=== PATIENT | female | born 1955 | race Caucasian/White ===

== ENCOUNTER 2020-04-15 18:45 | Inpatient (IN) ==
[2020-04-16] MEDS ORDERED: Naloxone 0.4 MG/ML INJ IVP PRN (00:32)
[2020-04-16] MEDS ORDERED: Acetaminophen 325 MG TABLET PO PRN (00:34)
[2020-04-16] MEDS ORDERED: Perflutren Lipid Microsphere 1.3 ML in 0.9 % Sodium Chloride 8.7 ML IVP PRN (00:53)
[2020-04-16 01:14] LABS: Basophils # 0.1 K/mcL (0.0-0.2); Basophils % 0.5 %; Eosinophils # 0.3 K/mcL (0.0-0.6); Eosinophils % 2.7 %; Hematocrit 40.2 % (35.3-44.9); Hemoglobin 11.7 g/dL (11.5-15.4); Immature Granulocytes % 0.3 % (0-4); Lymphocytes # 1.4 K/mcL (0.6-4.6); Lymphocytes % 13.7 %; Mean Corpuscular HGB Conc 29.1 g/dL (31.6-35.5); Mean Corpuscular Hemoglobin 27.2 pg (28.0-33.3); Mean Corpuscular Volume 93.5 fL (83.0-100.0); Mean Platelet Volume 10.4 fL (9.4-12.4); Monocytes # 0.8 K/mcL (0.0-1.3); Monocytes % 8.3 %; Neutrophils # 7.4 K/mcL (1.6-8.9); Platelet Count 182 K/mcL (140-400); Red Cell Distribution Width 16.1 % (11.5-14.5); Segmented Neutrophils % 74.5 %; White Blood Count 9.9 K/mcL (4.3-11.1)
[2020-04-16 01:20] LABS: INR 1.2; Prothrombin Time 14.3 Seconds (9.4-12.1)
[2020-04-16 01:22] LABS: Activated Partial Thrombo Time 25.7 Seconds (26.0-36.0)
[2020-04-16 01:46] LABS: Alanine Aminotransferase 10 Units/L (7-52); Albumin 2.8 g/dL (3.5-5.7); Albumin/Globulin Ratio 0.8 (1.1-2.2); Alkaline Phosphatase 62 Units/L (34-104); Aspartate Amino Transferase 23 Units/L (13-39); BUN/Creatinine Ratio 25 (6-26); Bilirubin,Total 0.8 mg/dL (0.3-1.0); Blood Urea Nitrogen 15 mg/dL (8-23); Calcium 8.7 mg/dL (8.6-10.3); Carbon Dioxide 42 mEq/L (23-29); Chloride 96 mEq/L (98-107); Chol/HDL Ratio 2.3 (0-4.9); Cholesterol 112 mg/dL (< 200); Globulin 3.6 g/dL (2.4-3.5); Glucose 103 mg/dL (70-105); HDL Cholesterol 48 mg/dL (40-59); LDL Cholesterol,Calculated 48 mg/dL (< 100); Magnesium 1.7 mg/dL (1.6-2.6); Osmolality,Calculated 295 (280-300); Potassium 3.6 mEq/L (3.5-5.1); Sodium 142 mEq/L (136-145); Total Protein 6.4 g/dL (6.4-8.9); Triglycerides 80 mg/dL (< 150); Troponin I 0.16 ng/mL (< 0.04); eGFR For African Americans > 60 (> 60); eGFR For Non-African Americans > 60 (> 60)
[2020-04-16 03:14] LABS: Bacteria,Urine Few per hpf (None-Few); Bilirubin,Urine Negative (Negative); Blood,Urine Large (Negative); Clarity,Urine Turbid (Clear); Color,Urine Yellow (Yellow); Glucose,Urine (UA) Normal (Normal); Ketones,Urine Negative (Negative); Leukocyte Esterase,Urine Large (Negative); Mucus,Urine Few per lpf (None-Few); Nitrite,Urine Negative (Negative); Protein,Urine 70 mg/dL (Neg-Trace); RBC,Urine TNTC per hpf (0-3); Specific Gravity,Urine 1.026 (1.010-1.025); Squamous Epithelial Cell,Urine Few per hpf (None-Few); WBC,Urine TNTC per hpf (0-3)
[2020-04-16] MEDS: Aspirin Enteric Coated 81 MG Tablet PO SCH (08:57)
[2020-04-16] MEDS ORDERED: Furosemide 40 MG/4 ML VIAL IVP SCH (09:00)
[2020-04-16] MEDS: Furosemide 40 MG/4 ML VIAL IVP SCH ×2 (14:59→21:48)
[2020-04-16] MEDS: *HR* Heparin 5,000 UNIT/ML VIAL SQ SCH (18:20)
[2020-04-17 05:07] LABS: Hematocrit 38.7 % (35.3-44.9); Hemoglobin 11.2 g/dL (11.5-15.4); Mean Corpuscular HGB Conc 28.9 g/dL (31.6-35.5); Mean Corpuscular Hemoglobin 27.1 pg (28.0-33.3); Mean Corpuscular Volume 93.5 fL (83.0-100.0); Mean Platelet Volume 10.5 fL (9.4-12.4); Platelet Count 193 K/mcL (140-400); Red Blood Count 4.14 M/mcL (3.82-4.97); White Blood Count 8.9 K/mcL (4.3-11.1)
[2020-04-17 05:30] LABS: BUN/Creatinine Ratio 25 (6-26); Blood Urea Nitrogen 16 mg/dL (8-23); Calcium 8.4 mg/dL (8.6-10.3); Carbon Dioxide > 45 mEq/L (23-29); Chloride 92 mEq/L (98-107); Glucose 95 mg/dL (70-105); Osmolality,Calculated 295 (280-300); Potassium 3.5 mEq/L (3.5-5.1); Sodium 142 mEq/L (136-145); eGFR For African Americans > 60 (> 60); eGFR For Non-African Americans > 60 (> 60)
[2020-04-17] MEDS: *HR* Heparin 5,000 UNIT/ML VIAL SQ SCH ×2 (05:40→17:04)
[2020-04-17] MEDS: Aspirin Enteric Coated 81 MG Tablet PO SCH (10:35)
[2020-04-17] MEDS: Furosemide 40 MG/4 ML VIAL IVP SCH ×3 (10:35→21:25)
[2020-04-17 15:33] LABS: ABG Base Excess 19 mEq/L (-2 to 3); ABG HCO3 47 mEq/L (21-27); ABG Oxygen Saturation 91 % (95-98); ABG PCO2 74 mmHg (35-45); ABG PH 7.42 pH Units (7.32-7.45); ABG PO2 63 mmHg (85-104); ABG TCO2 50 mEq/L (20-26)
[2020-04-17] MEDS: cefTRIAXone 1,000 MG in Water for inj. (sterile) 10 ML IVP SCH (15:44)
[2020-04-18 04:26] LABS: Mean Platelet Volume 10.7 fL (9.4-12.4)
[2020-04-18 04:28] LABS: Hematocrit 40.7 % (35.3-44.9); Hemoglobin 11.9 g/dL (11.5-15.4); Mean Corpuscular HGB Conc 29.2 g/dL (31.6-35.5); Mean Corpuscular Hemoglobin 26.9 pg (28.0-33.3); Mean Corpuscular Volume 92.1 fL (83.0-100.0); Platelet Count 207 K/mcL (140-400); Red Blood Count 4.42 M/mcL (3.82-4.97); Red Cell Distribution Width 15.8 % (11.5-14.5); White Blood Count 9.2 K/mcL (4.3-11.1)
[2020-04-18 04:51] LABS: BUN/Creatinine Ratio 25 (6-26); Blood Urea Nitrogen 18 mg/dL (8-23); Calcium 8.6 mg/dL (8.6-10.3); Carbon Dioxide > 45 mEq/L (23-29); Chloride 90 mEq/L (98-107); Glucose 98 mg/dL (70-105); Osmolality,Calculated 292 (280-300); Potassium 3.3 mEq/L (3.5-5.1); Sodium 140 mEq/L (136-145); eGFR For African Americans > 60 (> 60); eGFR For Non-African Americans > 60 (> 60)
[2020-04-18] MEDS: *HR* Heparin 5,000 UNIT/ML VIAL SQ SCH ×2 (05:50→17:22)
[2020-04-18] MEDS: Aspirin Enteric Coated 81 MG Tablet PO SCH (09:21)
[2020-04-18] MEDS: atenoloL 50 MG TABLET PO SCH (09:21)
[2020-04-18] MEDS: Furosemide 40 MG/4 ML VIAL IVP SCH (09:22)
[2020-04-18] MEDS: cefTRIAXone 1,000 MG in Water for inj. (sterile) 10 ML IVP SCH (09:30)
[2020-04-18 11:55] LABS: ABG Base Excess 18 mEq/L (-2 to 3); ABG HCO3 45 mEq/L (21-27); ABG Oxygen Saturation 94 % (95-98); ABG PCO2 64 mmHg (35-45); ABG PH 7.45 pH Units (7.32-7.45); ABG PO2 71 mmHg (85-104); ABG TCO2 47 mEq/L (20-26)
[2020-04-18] MEDS: acetaZOLAMIDE 250 MG TABLET PO SCH (12:24)
[2020-04-19 04:58] LABS: Hematocrit 39.9 % (35.3-44.9); Hemoglobin 11.7 g/dL (11.5-15.4); Mean Corpuscular HGB Conc 29.3 g/dL (31.6-35.5); Mean Corpuscular Hemoglobin 26.9 pg (28.0-33.3); Mean Corpuscular Volume 91.7 fL (83.0-100.0); Mean Platelet Volume 10.2 fL (9.4-12.4); Platelet Count 226 K/mcL (140-400); Red Blood Count 4.35 M/mcL (3.82-4.97); Red Cell Distribution Width 15.9 % (11.5-14.5); White Blood Count 8.9 K/mcL (4.3-11.1)
[2020-04-19 05:15] LABS: BUN/Creatinine Ratio 24 (6-26); Blood Urea Nitrogen 18 mg/dL (8-23); Carbon Dioxide 44 mEq/L (23-29); Chloride 93 mEq/L (98-107); Glucose 92 mg/dL (70-105); Osmolality,Calculated 290 (280-300); Potassium 3.4 mEq/L (3.5-5.1); Sodium 139 mEq/L (136-145); eGFR For African Americans > 60 (> 60); eGFR For Non-African Americans > 60 (> 60)
[2020-04-19] MEDS: *HR* Heparin 5,000 UNIT/ML VIAL SQ SCH ×2 (06:12→18:03)
[2020-04-19] MEDS: atenoloL 50 MG TABLET PO SCH (09:40)
[2020-04-19] MEDS: Aspirin Enteric Coated 81 MG Tablet PO SCH (09:41)
[2020-04-20 03:55] LABS: Red Cell Distribution Width 15.9 % (11.5-14.5)
[2020-04-20 03:56] LABS: Hemoglobin 12.4 g/dL (11.5-15.4); Mean Corpuscular HGB Conc 29.5 g/dL (31.6-35.5); Mean Corpuscular Hemoglobin 27.3 pg (28.0-33.3); Mean Corpuscular Volume 92.3 fL (83.0-100.0); Mean Platelet Volume 10.9 fL (9.4-12.4); Platelet Count 251 K/mcL (140-400); Red Blood Count 4.55 M/mcL (3.82-4.97); White Blood Count 10.1 K/mcL (4.3-11.1)
[2020-04-20 04:13] LABS: BUN/Creatinine Ratio 29 (6-26); Blood Urea Nitrogen 20 mg/dL (8-23); Calcium 9.2 mg/dL (8.6-10.3); Carbon Dioxide 37 mEq/L (23-29); Chloride 95 mEq/L (98-107); Glucose 96 mg/dL (70-105); Osmolality,Calculated 286 (280-300); Potassium 3.8 mEq/L (3.5-5.1); Sodium 137 mEq/L (136-145); eGFR For African Americans > 60 (> 60); eGFR For Non-African Americans > 60 (> 60)
[2020-04-20] MEDS: *HR* Heparin 5,000 UNIT/ML VIAL SQ SCH ×2 (05:07→17:33)
[2020-04-20] MEDS: Aspirin Enteric Coated 81 MG Tablet PO SCH (08:43)
[2020-04-20] MEDS: acetaZOLAMIDE 250 MG TABLET PO SCH (08:43)
[2020-04-20] MEDS: atenoloL 50 MG TABLET PO SCH (08:43)
[2020-04-21 03:26] LABS: Hematocrit 41.6 % (35.3-44.9); Hemoglobin 12.2 g/dL (11.5-15.4); Mean Corpuscular HGB Conc 29.3 g/dL (31.6-35.5); Mean Corpuscular Hemoglobin 27.1 pg (28.0-33.3); Mean Corpuscular Volume 92.2 fL (83.0-100.0); Mean Platelet Volume 10.5 fL (9.4-12.4); Platelet Count 222 K/mcL (140-400); Red Blood Count 4.51 M/mcL (3.82-4.97); White Blood Count 10.1 K/mcL (4.3-11.1)
[2020-04-21 03:48] LABS: BUN/Creatinine Ratio 30 (6-26); Blood Urea Nitrogen 21 mg/dL (8-23); Calcium 8.9 mg/dL (8.6-10.3); Carbon Dioxide 34 mEq/L (23-29); Chloride 99 mEq/L (98-107); Glucose 90 mg/dL (70-105); Osmolality,Calculated 289 (280-300); Potassium 4.5 mEq/L (3.5-5.1); Sodium 138 mEq/L (136-145); eGFR For African Americans > 60 (> 60); eGFR For Non-African Americans > 60 (> 60)
[2020-04-21] MEDS: *HR* Heparin 5,000 UNIT/ML VIAL SQ SCH ×2 (05:06→17:59)
[2020-04-21] MEDS: Aspirin Enteric Coated 81 MG Tablet PO SCH (08:17)
[2020-04-21] MEDS: atenoloL 50 MG TABLET PO SCH (08:17)
[2020-04-22 01:13] LABS: Hematocrit 41.1 % (35.3-44.9); Hemoglobin 12.1 g/dL (11.5-15.4); Mean Corpuscular HGB Conc 29.4 g/dL (31.6-35.5); Mean Corpuscular Hemoglobin 26.9 pg (28.0-33.3); Mean Corpuscular Volume 91.5 fL (83.0-100.0); Platelet Count 262 K/mcL (140-400); Red Blood Count 4.49 M/mcL (3.82-4.97); Red Cell Distribution Width 16.1 % (11.5-14.5); White Blood Count 9.9 K/mcL (4.3-11.1)
[2020-04-22 01:34] LABS: BUN/Creatinine Ratio 31 (6-26); Blood Urea Nitrogen 22 mg/dL (8-23); Calcium 8.9 mg/dL (8.6-10.3); Carbon Dioxide 34 mEq/L (23-29); Chloride 102 mEq/L (98-107); Glucose 92 mg/dL (70-105); Osmolality,Calculated 293 (280-300); Potassium 4.2 mEq/L (3.5-5.1); Sodium 140 mEq/L (136-145); eGFR For African Americans > 60 (> 60); eGFR For Non-African Americans > 60 (> 60)
[2020-04-22] MEDS: *HR* Heparin 5,000 UNIT/ML VIAL SQ SCH ×2 (05:06→17:09)
[2020-04-22] MEDS: Aspirin Enteric Coated 81 MG Tablet PO SCH (08:55)
[2020-04-22] MEDS: atenoloL 50 MG TABLET PO SCH (08:55)
[2020-04-22] MEDS: acetaZOLAMIDE 250 MG TABLET PO SCH (08:55)
[2020-04-23 03:17] LABS: Mean Platelet Volume 10.5 fL (9.4-12.4)
[2020-04-23 03:18] LABS: Hematocrit 43.1 % (35.3-44.9); Hemoglobin 12.4 g/dL (11.5-15.4); Mean Corpuscular HGB Conc 28.8 g/dL (31.6-35.5); Mean Corpuscular Hemoglobin 26.4 pg (28.0-33.3); Mean Corpuscular Volume 91.9 fL (83.0-100.0); Platelet Count 276 K/mcL (140-400); Red Blood Count 4.69 M/mcL (3.82-4.97); Red Cell Distribution Width 16.4 % (11.5-14.5); White Blood Count 10.6 K/mcL (4.3-11.1)
[2020-04-23 03:36] LABS: BUN/Creatinine Ratio 27 (6-26); Blood Urea Nitrogen 20 mg/dL (8-23); Calcium 8.8 mg/dL (8.6-10.3); Carbon Dioxide 35 mEq/L (23-29); Chloride 103 mEq/L (98-107); Glucose 97 mg/dL (70-105); Osmolality,Calculated 293 (280-300); Potassium 4.3 mEq/L (3.5-5.1); Sodium 140 mEq/L (136-145); eGFR For African Americans > 60 (> 60); eGFR For Non-African Americans > 60 (> 60)
[2020-04-23] MEDS: *HR* Heparin 5,000 UNIT/ML VIAL SQ SCH ×2 (05:48→16:55)
[2020-04-23] MEDS: Aspirin Enteric Coated 81 MG Tablet PO SCH (08:36)
[2020-04-23] MEDS: atenoloL 50 MG TABLET PO SCH (08:36)
[2020-04-24 03:04] LABS: Hematocrit 40.7 % (35.3-44.9); Hemoglobin 11.8 g/dL (11.5-15.4); Mean Corpuscular Volume 93.1 fL (83.0-100.0); Mean Platelet Volume 10.4 fL (9.4-12.4); Platelet Count 276 K/mcL (140-400); Red Blood Count 4.37 M/mcL (3.82-4.97); Red Cell Distribution Width 16.2 % (11.5-14.5); White Blood Count 10.3 K/mcL (4.3-11.1)
[2020-04-24 03:27] LABS: BUN/Creatinine Ratio 26 (6-26); Blood Urea Nitrogen 20 mg/dL (8-23); Calcium 8.9 mg/dL (8.6-10.3); Carbon Dioxide 32 mEq/L (23-29); Chloride 104 mEq/L (98-107); Glucose 91 mg/dL (70-105); Osmolality,Calculated 292 (280-300); Potassium 4.4 mEq/L (3.5-5.1); Sodium 140 mEq/L (136-145); eGFR For African Americans > 60 (> 60); eGFR For Non-African Americans > 60 (> 60)
[2020-04-24] MEDS: *HR* Heparin 5,000 UNIT/ML VIAL SQ SCH ×2 (06:06→17:34)
[2020-04-24] MEDS: Aspirin Enteric Coated 81 MG Tablet PO SCH (09:13)
[2020-04-24] MEDS: atenoloL 50 MG TABLET PO SCH (09:13)
[2020-04-24] MEDS: acetaZOLAMIDE 250 MG TABLET PO SCH (09:13)
[2020-04-25 02:32] LABS: Hemoglobin 11.6 g/dL (11.5-15.4); Mean Platelet Volume 10.2 fL (9.4-12.4)
[2020-04-25 02:34] LABS: Hematocrit 39.8 % (35.3-44.9); Mean Corpuscular HGB Conc 29.1 g/dL (31.6-35.5); Mean Corpuscular Hemoglobin 27.1 pg (28.0-33.3); Platelet Count 278 K/mcL (140-400); Red Blood Count 4.28 M/mcL (3.82-4.97); Red Cell Distribution Width 16.3 % (11.5-14.5); White Blood Count 10.1 K/mcL (4.3-11.1)
[2020-04-25 02:53] LABS: BUN/Creatinine Ratio 27 (6-26); Blood Urea Nitrogen 20 mg/dL (8-23); Calcium 9.1 mg/dL (8.6-10.3); Carbon Dioxide 31 mEq/L (23-29); Chloride 105 mEq/L (98-107); Glucose 93 mg/dL (70-105); Osmolality,Calculated 290 (280-300); Potassium 4.4 mEq/L (3.5-5.1); Sodium 139 mEq/L (136-145); eGFR For African Americans > 60 (> 60); eGFR For Non-African Americans > 60 (> 60)
[2020-04-25] MEDS: *HR* Heparin 5,000 UNIT/ML VIAL SQ SCH ×2 (05:28→17:03)
[2020-04-25 08:28] LABS: Magnesium 2.2 mg/dL (1.6-2.6); Phosphorous 3.5 mg/dL (2.7-4.5)
[2020-04-25] MEDS: Aspirin Enteric Coated 81 MG Tablet PO SCH (09:24)
[2020-04-25] MEDS: atenoloL 50 MG TABLET PO SCH (09:25)
[2020-04-25] MEDS ORDERED: Ipratropium/Albuterol Neb 3 ML IH PRN (17:36)
[2020-04-26 02:24] LABS: Hematocrit 40.3 % (35.3-44.9); Hemoglobin 11.7 g/dL (11.5-15.4); Mean Corpuscular Hemoglobin 26.7 pg (28.0-33.3); Mean Corpuscular Volume 91.8 fL (83.0-100.0); Mean Platelet Volume 10.2 fL (9.4-12.4); Platelet Count 271 K/mcL (140-400); Red Blood Count 4.39 M/mcL (3.82-4.97); Red Cell Distribution Width 16.1 % (11.5-14.5); White Blood Count 8.9 K/mcL (4.3-11.1)
[2020-04-26 02:45] LABS: BUN/Creatinine Ratio 28 (6-26); Blood Urea Nitrogen 19 mg/dL (8-23); Carbon Dioxide 33 mEq/L (23-29); Chloride 104 mEq/L (98-107); Glucose 110 mg/dL (70-105); Osmolality,Calculated 293 (280-300); Potassium 4.3 mEq/L (3.5-5.1); Sodium 140 mEq/L (136-145); eGFR For African Americans > 60 (> 60); eGFR For Non-African Americans > 60 (> 60)
[2020-04-26] MEDS: *HR* Heparin 5,000 UNIT/ML VIAL SQ SCH ×2 (06:07→16:44)
[2020-04-26] MEDS: atenoloL 50 MG TABLET PO SCH (09:37)
[2020-04-26] MEDS: acetaZOLAMIDE 250 MG TABLET PO SCH (09:37)
[2020-04-26] MEDS: Aspirin Enteric Coated 81 MG Tablet PO SCH (09:37)
[2020-04-27] MEDS: *HR* Heparin 5,000 UNIT/ML VIAL SQ SCH ×2 (05:48→18:06)
[2020-04-27 06:43] LABS: Hematocrit 44.5 % (35.3-44.9); Hemoglobin 12.9 g/dL (11.5-15.4); Mean Corpuscular Volume 93.3 fL (83.0-100.0); Mean Platelet Volume 10.2 fL (9.4-12.4); Platelet Count 267 K/mcL (140-400); Red Blood Count 4.77 M/mcL (3.82-4.97); Red Cell Distribution Width 16.3 % (11.5-14.5); White Blood Count 8.3 K/mcL (4.3-11.1)
[2020-04-27 07:04] LABS: BUN/Creatinine Ratio 25 (6-26); Blood Urea Nitrogen 19 mg/dL (8-23); Calcium 9.2 mg/dL (8.6-10.3); Carbon Dioxide 31 mEq/L (23-29); Chloride 105 mEq/L (98-107); Glucose 86 mg/dL (70-105); Osmolality,Calculated 292 (280-300); Potassium 4.3 mEq/L (3.5-5.1); Sodium 140 mEq/L (136-145); eGFR For African Americans > 60 (> 60); eGFR For Non-African Americans > 60 (> 60)
[2020-04-27] MEDS: atenoloL 50 MG TABLET PO SCH (09:25)
[2020-04-27] MEDS: Aspirin Enteric Coated 81 MG Tablet PO SCH (09:26)
[2020-04-28 01:26] LABS: Hematocrit 43.8 % (35.3-44.9); Hemoglobin 12.7 g/dL (11.5-15.4); Mean Corpuscular Hemoglobin 26.7 pg (28.0-33.3); Mean Platelet Volume 10.2 fL (9.4-12.4); Platelet Count 264 K/mcL (140-400); Red Blood Count 4.76 M/mcL (3.82-4.97); Red Cell Distribution Width 16.2 % (11.5-14.5); White Blood Count 11.7 K/mcL (4.3-11.1)
[2020-04-28 01:35] LABS: BUN/Creatinine Ratio 27 (6-26); Blood Urea Nitrogen 19 mg/dL (8-23); Calcium 9.1 mg/dL (8.6-10.3); Carbon Dioxide 28 mEq/L (23-29); Chloride 104 mEq/L (98-107); Glucose 93 mg/dL (70-105); Osmolality,Calculated 286 (280-300); Phosphorous 3.5 mg/dL (2.7-4.5); Potassium 4.3 mEq/L (3.5-5.1); Sodium 137 mEq/L (136-145); eGFR For African Americans > 60 (> 60); eGFR For Non-African Americans > 60 (> 60)
[2020-04-28] MEDS: *HR* Heparin 5,000 UNIT/ML VIAL SQ SCH ×2 (05:31→16:35)
[2020-04-28] MEDS: acetaZOLAMIDE 250 MG TABLET PO SCH (08:24)
[2020-04-28] MEDS: Aspirin Enteric Coated 81 MG Tablet PO SCH (08:24)
[2020-04-28] MEDS: atenoloL 50 MG TABLET PO SCH (08:25)
[2020-04-29] MEDS: *HR* Heparin 5,000 UNIT/ML VIAL SQ SCH ×2 (05:51→17:56)
[2020-04-29] MEDS: atenoloL 50 MG TABLET PO SCH (08:40)
[2020-04-29] MEDS: Aspirin Enteric Coated 81 MG Tablet PO SCH (08:40)
[2020-04-30 05:04] LABS: Immature Granulocytes % 0.4 % (0-4); Mean Corpuscular Volume 91.1 fL (83.0-100.0)
[2020-04-30 05:05] LABS: Basophils # 0.1 K/mcL (0.0-0.2); Basophils % 1.1 %; Eosinophils # 0.3 K/mcL (0.0-0.6); Eosinophils % 3.2 %; Hematocrit 40.1 % (35.3-44.9); Hemoglobin 11.8 g/dL (11.5-15.4); Lymphocytes # 2.1 K/mcL (0.6-4.6); Lymphocytes % 22.4 %; Mean Corpuscular HGB Conc 29.4 g/dL (31.6-35.5); Mean Corpuscular Hemoglobin 26.8 pg (28.0-33.3); Mean Platelet Volume 10.1 fL (9.4-12.4); Monocytes # 0.7 K/mcL (0.0-1.3); Monocytes % 7.6 %; Platelet Count 242 K/mcL (140-400); Red Cell Distribution Width 16.4 % (11.5-14.5); Segmented Neutrophils % 65.3 %; White Blood Count 9.4 K/mcL (4.3-11.1)
[2020-04-30 05:11] LABS: Neutrophils # 6.1 K/mcL (1.6-8.9)
[2020-04-30 05:57] LABS: Platelet Estimate Normal (Normal)
[2020-04-30] MEDS: *HR* Heparin 5,000 UNIT/ML VIAL SQ SCH ×2 (06:28→17:20)
[2020-04-30] MEDS: acetaZOLAMIDE 250 MG TABLET PO SCH (08:29)
[2020-04-30] MEDS: Aspirin Enteric Coated 81 MG Tablet PO SCH (08:29)
[2020-04-30] MEDS: atenoloL 50 MG TABLET PO SCH (10:16)
[2020-05-01] MEDS: *HR* Heparin 5,000 UNIT/ML VIAL SQ SCH ×2 (05:41→16:54)
[2020-05-01] MEDS: Aspirin Enteric Coated 81 MG Tablet PO SCH (08:39)
[2020-05-01] MEDS: atenoloL 50 MG TABLET PO SCH (08:39)
[2020-05-02] MEDS: *HR* Heparin 5,000 UNIT/ML VIAL SQ SCH ×2 (05:48→16:15)
[2020-05-02] MEDS: atenoloL 50 MG TABLET PO SCH (07:41)
[2020-05-02] MEDS: acetaZOLAMIDE 250 MG TABLET PO SCH (07:41)
[2020-05-02] MEDS: Aspirin Enteric Coated 81 MG Tablet PO SCH (07:41)
[2020-05-03] MEDS: *HR* Heparin 5,000 UNIT/ML VIAL SQ SCH ×2 (05:58→17:26)
[2020-05-03] MEDS: atenoloL 50 MG TABLET PO SCH (09:45)
[2020-05-03] MEDS: Aspirin Enteric Coated 81 MG Tablet PO SCH (09:45)
[2020-05-04] MEDS: *HR* Heparin 5,000 UNIT/ML VIAL SQ SCH ×2 (05:00→17:49)
[2020-05-04] MEDS: Aspirin Enteric Coated 81 MG Tablet PO SCH (08:26)
[2020-05-04] MEDS: acetaZOLAMIDE 250 MG TABLET PO SCH (08:26)
[2020-05-04] MEDS: atenoloL 50 MG TABLET PO SCH (08:26)
[2020-05-05] MEDS: *HR* Heparin 5,000 UNIT/ML VIAL SQ SCH ×2 (05:31→16:30)
[2020-05-05] MEDS: Aspirin Enteric Coated 81 MG Tablet PO SCH (08:54)
[2020-05-05] MEDS: atenoloL 50 MG TABLET PO SCH (08:56)
[2020-05-06] MEDS: *HR* Heparin 5,000 UNIT/ML VIAL SQ SCH ×2 (05:36→16:57)
[2020-05-06] MEDS: atenoloL 50 MG TABLET PO SCH (07:36)
[2020-05-06] MEDS: Aspirin Enteric Coated 81 MG Tablet PO SCH (07:37)
[2020-05-06] MEDS: acetaZOLAMIDE 250 MG TABLET PO SCH (07:37)
[2020-05-07] MEDS: *HR* Heparin 5,000 UNIT/ML VIAL SQ SCH ×2 (05:26→15:54)
[2020-05-07] MEDS: Aspirin Enteric Coated 81 MG Tablet PO SCH (08:28)
[2020-05-07] MEDS: atenoloL 50 MG TABLET PO SCH (08:28)
[2020-05-08] MEDS: *HR* Heparin 5,000 UNIT/ML VIAL SQ SCH ×2 (05:18→17:01)
[2020-05-08] MEDS: acetaZOLAMIDE 250 MG TABLET PO SCH (10:10)
[2020-05-08] MEDS: Aspirin Enteric Coated 81 MG Tablet PO SCH (10:10)
[2020-05-08] MEDS: atenoloL 50 MG TABLET PO SCH (10:10)
[2020-05-09] MEDS: *HR* Heparin 5,000 UNIT/ML VIAL SQ SCH ×2 (05:16→17:51)
[2020-05-09] MEDS: Aspirin Enteric Coated 81 MG Tablet PO SCH (09:35)
[2020-05-09] MEDS: atenoloL 50 MG TABLET PO SCH (09:35)
[2020-05-09 13:58] VITALS: BP 118/84
[2020-05-09 16:49] LABS: Adenovirus Not Detected (Not Detect); Bordetella Pertussis Not Detected (Not Detect); Chlamydophila pneumoniae Not Detected (Not Detect); Coronavirus 229E Not Detected (Not Detect); Coronavirus HKU1 Not Detected (Not Detect); Coronavirus NL63 Not Detected (Not Detect); Coronavirus OC43 Not Detected (Not Detect); Human Metapneumovirus Not Detected (Not Detect); Human Rhinovirus/Enterovirus Not Detected (Not Detect); Influenza A Subtype 2009 H1 Not Detected (Not Detect); Influenza B Not Detected (Not Detect); Mycoplasma pneumoniae Not Detected (Not Detect); Parainfluenza Virus 1 Not Detected (Not Detect); Parainfluenza Virus 2 Not Detected (Not Detect); Parainfluenza Virus 3 Not Detected (Not Detect); Parainfluenza Virus 4 Not Detected (Not Detect); Respiratory Syncytial Virus Not Detected (Not Detect); SARS-CoV-2 Not Detected (Not Detect)
== END 2020-05-09 18:12 | disposition other institution (70) | DRG 194 ==
LOC: 3ANU → SUATTDRO 04-16 00:06
PROVIDERS: ADMIT Internal Medicine; ATTEND Student in an Organized Health Care Education/Training Program

== ENCOUNTER 2021-06-12 21:44 | Inpatient (IN) ==
[2021-06-13] MEDS ORDERED: Naloxone 0.4 MG/ML INJ IVP PRN (00:21)
[2021-06-13] MEDS ORDERED: Ondansetron 4 MG/2 ML VIAL IVP PRN (00:21)
[2021-06-13] MEDS ORDERED: Ipratropium/Albuterol Neb 3 ML IH PRN (00:24)
[2021-06-13 01:28] LABS: Basophils # 0.1 K/mcL (0.0-0.2); Basophils % 0.4 %; Immature Granulocytes % 0.6 % (0-4); White Blood Count 13.1 K/mcL (4.3-11.1)
[2021-06-13 01:29] LABS: Eosinophils # 0.1 K/mcL (0.0-0.6); Eosinophils % 0.6 %; Hematocrit 37.6 % (35.3-44.9); Hemoglobin 11.2 g/dL (11.5-15.4); Lymphocytes # 1.1 K/mcL (0.6-4.6); Lymphocytes % 8.3 %; Mean Corpuscular HGB Conc 29.8 g/dL (31.6-35.5); Mean Corpuscular Hemoglobin 25.1 pg (28.0-33.3); Mean Corpuscular Volume 84.1 fL (83.0-100.0); Mean Platelet Volume 9.9 fL (9.4-12.4); Monocytes # 0.9 K/mcL (0.0-1.3); Monocytes % 6.8 %; Neutrophils # 10.9 K/mcL (1.6-8.9); Platelet Count 208 K/mcL (140-400); Red Blood Count 4.47 M/mcL (3.82-4.97); Red Cell Distribution Width 17.9 % (11.5-14.5); Segmented Neutrophils % 83.3 %
[2021-06-13 01:42] LABS: INR 1.4; Prothrombin Time 15.7 Seconds (9.4-12.1)
[2021-06-13 01:46] LABS: BUN/Creatinine Ratio 33 (6-26); Blood Urea Nitrogen 46 mg/dL (8-23); Calcium 8.4 mg/dL (8.6-10.3); Carbon Dioxide 33 mEq/L (23-29); Chloride 108 mEq/L (98-107); Glucose 138 mg/dL (70-105); Magnesium 2.1 mg/dL (1.6-2.6); Osmolality,Calculated 314 (280-300); Phosphorous 3.3 mg/dL (2.7-4.5); Potassium 4.3 mEq/L (3.5-5.1); Sodium 145 mEq/L (136-145); eGFR For African Americans 47 (> 60); eGFR For Non-African Americans 38 (> 60)
[2021-06-13 01:47] LABS: Troponin I < 0.03 ng/mL (< 0.04)
[2021-06-13] MEDS ORDERED: Perflutren Lipid Microsphere 1.3 ML in 0.9 % Sodium Chloride 8.7 ML IVP PRN (01:49)
[2021-06-13 01:59] LABS: Thyroid Stimulating Hormone 3.419 mcIU/mL (0.340-5.600)
[2021-06-13 02:02] LABS: Hypochromasia Present (Not Present); Platelet Estimate Normal (Normal)
[2021-06-13] MEDS: cefTRIAXone 1,000 MG in 0.9 % Sodium Chloride 10 ML IVP SCH (02:03)
[2021-06-13] MEDS: *HR* Heparin 5,000 UNIT/ML VIAL SQ SCH ×3 (05:47→20:47)
[2021-06-13 07:05] LABS: Estimated Average Glucose 154 mg/dl
[2021-06-13 08:22] LABS: Potassium,Urine 20.7 mEq/L; Sodium, Urine 59.8 mEq/L
[2021-06-13] MEDS: atenoloL 50 MG TABLET PO SCH (09:03)
[2021-06-13] MEDS: Aspirin Enteric Coated 81 MG Tablet PO SCH (09:03)
[2021-06-13] MEDS: Gabapentin 300 MG CAPSULE PO SCH ×3 (09:03→19:43)
[2021-06-13] MEDS: Furosemide 40 MG/4 ML VIAL IVP SCH ×2 (09:04→19:43)
[2021-06-14] MEDS: cefTRIAXone 1,000 MG in 0.9 % Sodium Chloride 10 ML IVP SCH (01:47)
[2021-06-14 05:48] LABS: Eosinophils % 3.1 %; Mean Platelet Volume 10.1 fL (9.4-12.4)
[2021-06-14 05:49] LABS: Basophils # 0.1 K/mcL (0.0-0.2); Basophils % 0.8 %; Eosinophils # 0.4 K/mcL (0.0-0.6); Hematocrit 37.9 % (35.3-44.9); Hemoglobin 10.5 g/dL (11.5-15.4); Immature Granulocytes % 0.5 % (0-4); Lymphocytes # 1.6 K/mcL (0.6-4.6); Lymphocytes % 11.4 %; Mean Corpuscular HGB Conc 27.7 g/dL (31.6-35.5); Mean Corpuscular Volume 86.7 fL (83.0-100.0); Monocytes # 1.2 K/mcL (0.0-1.3); Monocytes % 8.5 %; Neutrophils # 10.4 K/mcL (1.6-8.9); Platelet Count 223 K/mcL (140-400); Red Blood Count 4.37 M/mcL (3.82-4.97); Segmented Neutrophils % 75.7 %; White Blood Count 13.7 K/mcL (4.3-11.1)
[2021-06-14 06:02] LABS: Calcium 8.4 mg/dL (8.6-10.3); Potassium 4.5 mEq/L (3.5-5.1)
[2021-06-14] MEDS: *HR* Heparin 5,000 UNIT/ML VIAL SQ SCH ×3 (06:20→20:54)
[2021-06-14 06:45] LABS: Anisocytosis 1+ (Not Present); Hypochromasia Present (Not Present); Reactive Lymphocytes Present (Not Present)
[2021-06-14] MEDS: Aspirin Enteric Coated 81 MG Tablet PO SCH (09:04)
[2021-06-14] MEDS: atenoloL 50 MG TABLET PO SCH (09:05)
[2021-06-14] MEDS: Gabapentin 300 MG CAPSULE PO SCH ×3 (09:05→20:54)
[2021-06-14] MEDS: Furosemide 40 MG/4 ML VIAL IVP SCH (11:14)
[2021-06-14] MEDS: Ringers Solution, Lactated 500 ML IVC SCH ×2 (18:25→20:56)
[2021-06-14] MEDS: Acetaminophen 325 MG TABLET PO PRN (20:54)
[2021-06-14] MEDS: Nystatin Cream 15 GM TUBE TP SCH (21:52)
[2021-06-15] MEDS: Ringers Solution, Lactated 500 ML IVC SCH ×2 (00:46→05:46)
[2021-06-15] MEDS: cefTRIAXone 1,000 MG in 0.9 % Sodium Chloride 10 ML IVP SCH (00:56)
[2021-06-15 02:23] LABS: White Blood Count 11.8 K/mcL (4.3-11.1)
[2021-06-15 02:24] LABS: Basophils # 0.1 K/mcL (0.0-0.2); Basophils % 0.4 %; Eosinophils # 0.4 K/mcL (0.0-0.6); Eosinophils % 3.1 %; Hematocrit 37.7 % (35.3-44.9); Hemoglobin 10.3 g/dL (11.5-15.4); Immature Granulocytes % 0.4 % (0-4); Immature Platelets 6.1 % (1.1-6.1); Lymphocytes # 1.4 K/mcL (0.6-4.6); Lymphocytes % 12.1 %; Mean Corpuscular HGB Conc 27.3 g/dL (31.6-35.5); Mean Corpuscular Hemoglobin 23.6 pg (28.0-33.3); Mean Corpuscular Volume 86.5 fL (83.0-100.0); Mean Platelet Volume 10.7 fL (9.4-12.4); Monocytes # 0.9 K/mcL (0.0-1.3); Monocytes % 7.6 %; Platelet Count 154 K/mcL (140-400); Red Blood Count 4.36 M/mcL (3.82-4.97); Red Cell Distribution Width 18.1 % (11.5-14.5); Segmented Neutrophils % 76.4 %
[2021-06-15 02:28] LABS: Anisocytosis 1+ (Not Present); Platelet Estimate Normal (Normal)
[2021-06-15 02:40] LABS: Potassium 4.8 mEq/L (3.5-5.1)
[2021-06-15] MEDS: *HR* Heparin 5,000 UNIT/ML VIAL SQ SCH ×2 (05:46→18:26)
[2021-06-15] MEDS: Gabapentin 300 MG CAPSULE PO SCH ×3 (08:29→21:36)
[2021-06-15] MEDS: Aspirin Enteric Coated 81 MG Tablet PO SCH (08:29)
[2021-06-15] MEDS: Nystatin Cream 15 GM TUBE TP SCH ×2 (08:29→21:36)
[2021-06-15] MEDS: atenoloL 50 MG TABLET PO SCH (08:29)
[2021-06-15] MEDS ORDERED: Ringers Solution, Lactated 500 ML IVC SCH (10:00)
[2021-06-15] MEDS: Albumin 25% 25gram/100mL 25 GM/100 ML IV.SOLN IVPB SCH (16:26)
[2021-06-15] MEDS: Lactulose Oral Soln 20 GM/30 ML UDC PO SCH ×2 (16:26→21:44)
[2021-06-15 16:36] LABS: ABG Base Excess 2 mEq/L (-2 to 3); ABG HCO3 32 mEq/L (21-27); ABG Oxygen Saturation 92 % (95-98); ABG PCO2 78 mmHg (35-45); ABG PH 7.22 pH Units (7.32-7.45); ABG PO2 81 mmHg (85-104); ABG TCO2 34 mEq/L (20-26)
[2021-06-15] MEDS: Acetaminophen 325 MG TABLET PO PRN (21:35)
[2021-06-16] MEDS: Albumin 25% 25gram/100mL 25 GM/100 ML IV.SOLN IVPB SCH ×3 (00:18→17:05)
[2021-06-16 02:05] LABS: Calcium 8.7 mg/dL (8.6-10.3); Potassium 5.1 mEq/L (3.5-5.1)
[2021-06-16 02:06] LABS: Uric Acid 11.5 mg/dL (2.3-7.6)
[2021-06-16] MEDS: cefTRIAXone 1,000 MG in 0.9 % Sodium Chloride 10 ML IVP SCH (02:12)
[2021-06-16 02:19] LABS: Thyroid Stimulating Hormone 5.63 mcIU/mL (0.340-5.600)
[2021-06-16 02:20] LABS: Basophils # 0.1 K/mcL (0.0-0.2); Basophils % 0.6 %; Eosinophils # 0.2 K/mcL (0.0-0.6); Eosinophils % 1.9 %; Hematocrit 41.4 % (35.3-44.9); Hemoglobin 11.2 g/dL (11.5-15.4); Immature Granulocytes % 0.7 % (0-4); Lymphocytes # 1.5 K/mcL (0.6-4.6); Lymphocytes % 12.1 %; Mean Corpuscular HGB Conc 27.1 g/dL (31.6-35.5); Mean Corpuscular Hemoglobin 23.4 pg (28.0-33.3); Mean Corpuscular Volume 86.4 fL (83.0-100.0); Mean Platelet Volume 10.3 fL (9.4-12.4); Monocytes # 0.9 K/mcL (0.0-1.3); Monocytes % 7.7 %; Neutrophils # 9.3 K/mcL (1.6-8.9); Platelet Count 196 K/mcL (140-400); Red Blood Count 4.79 M/mcL (3.82-4.97); Red Cell Distribution Width 18.6 % (11.5-14.5); White Blood Count 12.1 K/mcL (4.3-11.1)
[2021-06-16 02:50] LABS: Anisocytosis 2+ (Not Present); Platelet Estimate Normal (Normal)
[2021-06-16 04:04] LABS: Hepatitis B Surface Antigen Nonreactive (Nonreactive)
[2021-06-16 04:33] LABS: Hepatitis C Virus Antibody Nonreactive (Nonreactive)
[2021-06-16 04:34] LABS: Hepatitis B Core IgM Nonreactive (Nonreactive)
[2021-06-16 04:35] LABS: Hepatitis A Antibody IgM Nonreactive (Nonreactive)
[2021-06-16] MEDS: *HR* Heparin 5,000 UNIT/ML VIAL SQ SCH ×2 (05:08→17:11)
[2021-06-16] MEDS ORDERED: Albumin 25% 25gram/100mL 25 GM/100 ML IV.SOLN IVPB PRN (07:49)
[2021-06-16] MEDS ORDERED: 0.9 % Sodium Chloride 250 ML IVC PRN (07:49)
[2021-06-16 07:55] LABS: Albumin 3.3 g/dL (3.5-5.7); Bilirubin,Direct 0.4 mg/dL (0.0-0.2); Bilirubin,Indirect 0.4 mg/dL (0.0-1.0); Bilirubin,Total 0.8 mg/dL (0.3-1.0)
[2021-06-16] MEDS ORDERED: 0.9 % Sodium Chloride 1,000 ML PRIME SCH ×2 (08:00→13:00)
[2021-06-16] MEDS ORDERED: *HR* Heparin 10,000 UNIT/10 ML VIAL IV PRN (08:08)
[2021-06-16 08:34] LABS: Albumin/Globulin Ratio 0.9 (1.1-2.2); Globulin 3.7 g/dL (2.4-3.5)
[2021-06-16] MEDS: atenoloL 50 MG TABLET PO SCH (08:41)
[2021-06-16] MEDS: Gabapentin 300 MG CAPSULE PO SCH (09:21)
[2021-06-16] MEDS: Lactulose Oral Soln 20 GM/30 ML UDC PO SCH ×2 (09:22→20:47)
[2021-06-16] MEDS: Nystatin Cream 15 GM TUBE TP SCH ×2 (09:23→20:47)
[2021-06-16 09:24] LABS: INR 1.2; Prothrombin Time 13.7 Seconds (9.4-12.1)
[2021-06-16] MEDS ORDERED: Heparin 1,000 UNITS/500 mL 500 ML ONE (09:48)
[2021-06-16] MEDS ORDERED: *HR* Heparin 5,000 UNIT/ML VIAL ONE (09:56)
[2021-06-16] MEDS ORDERED: Calcium Gluconate 2,000 MG in D5% in Water 100 ML IVPB STA (11:08)
[2021-06-16] MEDS ORDERED: Ipratropium/Albuterol Neb 3 ML IH STA (11:09)
[2021-06-16 11:16] LABS: ABG Base Excess 0 mEq/L (-2 to 3); ABG HCO3 30 mEq/L (21-27); ABG Oxygen Saturation 94 % (95-98); ABG PCO2 78 mmHg (35-45); ABG PH 7.19 pH Units (7.32-7.45); ABG PO2 92 mmHg (85-104); ABG TCO2 32 mEq/L (20-26)
[2021-06-16 11:22] LABS: Hemoglobin 11.1 g/dL (11.5-15.4); Nucleated Red Blood Cells 0.2 /100 WBC (0); Platelet Count 208 K/mcL (140-400)
[2021-06-16 11:23] LABS: Eosinophils # 0.2 K/mcL (0.0-0.6); Mean Corpuscular HGB Conc 27.1 g/dL (31.6-35.5); Mean Corpuscular Hemoglobin 23.7 pg (28.0-33.3); Mean Corpuscular Volume 87.6 fL (83.0-100.0); Mean Platelet Volume 10.4 fL (9.4-12.4); Red Blood Count 4.68 M/mcL (3.82-4.97); Red Cell Distribution Width 18.4 % (11.5-14.5); White Blood Count 11.8 K/mcL (4.3-11.1)
[2021-06-16 11:27] LABS: INR 1.3; Prothrombin Time 14.3 Seconds (9.4-12.1)
[2021-06-16] MEDS ORDERED: CALCIUM GLUCONATE IVPB ONE (11:30)
[2021-06-16] MEDS ORDERED: D5 IVPB ONE (11:30)
[2021-06-16] MEDS ORDERED: WATER IVPB ONE (11:30)
[2021-06-16 11:42] LABS: Albumin 3.1 g/dL (3.5-5.7); Albumin/Globulin Ratio 0.8 (1.1-2.2); Bilirubin,Total 0.8 mg/dL (0.3-1.0); Calcium 8.5 mg/dL (8.6-10.3); Globulin 3.9 g/dL (2.4-3.5); Potassium 5.2 mEq/L (3.5-5.1); Troponin I 0.03 ng/mL (< 0.04)
[2021-06-16 12:17] LABS: Lymphocytes # 1.3 K/mcL (0.6-4.6); Monocytes # 1.3 K/mcL (0.0-1.3)
[2021-06-16 12:25] LABS: Anisocytosis 1+ (Not Present); Hypochromasia Present (Not Present); Platelet Estimate Normal (Normal)
[2021-06-16] MEDS ORDERED: *HR* Heparin 5,000 UNIT/ML VIAL IVP PRN ×3 (12:58→21:31)
[2021-06-16] MEDS ORDERED: Calcium Gluconate 1gm/50mL 1 GM/50 ML BAG IVPB PRN (12:58)
[2021-06-16] MEDS: Norepinephrine 4 MG/254 ML IV.SOLN IVC SCH ×4 (13:32→22:18)
[2021-06-16] MEDS: Ringers Solution, Lactated 500 ML IVC SCH (13:37)
[2021-06-16] MEDS: Ipratropium/Albuterol Neb 3 ML IH SCH ×4 (14:29→23:44)
[2021-06-16 14:46] LABS: Calcium 9.1 mg/dL (8.6-10.3); Potassium 5.6 mEq/L (3.5-5.1)
[2021-06-16] MEDS: SODIUM CITRATE 500 ML CRRT SCH ×3 (15:04→23:00)
[2021-06-16] MEDS: PrismaSATE BGK 4/2.5 5,000 ML CRRT SCH ×6 (15:04→22:23)
[2021-06-16] MEDS: Calcium Chloride 4,000 MG in 0.9 % Sodium Chloride 1,000 ML CRRT SCH ×2 (15:04→19:16)
[2021-06-16 16:01] LABS: VBG HCO3 29 mEq/L (21-27); VBG PCO2 78 mmHg (41-51); VBG PH 7.19 pH Units (7.32-7.42); VBG PO2 56 mmHg (25-50)
[2021-06-16 16:43] LABS: ABG Base Excess -2 mEq/L (-2 to 3); ABG HCO3 27 mEq/L (21-27); ABG Oxygen Saturation 97 % (95-98); ABG PCO2 64 mmHg (35-45); ABG PH 7.23 pH Units (7.32-7.45); ABG PO2 104 mmHg (85-104); ABG TCO2 29 mEq/L (20-26)
[2021-06-16 17:06] LABS: Creatinine,Urine 191 mg/dL; Sodium, Urine 63.7 mEq/L
[2021-06-16 17:20] LABS: Microalbumin,Urine > 1350 mg/L; Protein/Creatinine Ratio,Urine 7.12 mg/mg (0.00-0.20)
[2021-06-16 18:26] LABS: VBG Ionized Calcium 1.14 mmol/L (1.15-1.35)
[2021-06-16 18:46] LABS: Hepatitis B Surface Antigen Nonreactive (Nonreactive)
[2021-06-16 19:15] LABS: Hepatitis B Core IgM Nonreactive (Nonreactive); Hepatitis C Virus Antibody Nonreactive (Nonreactive)
[2021-06-16 19:17] LABS: Hepatitis A Antibody IgM Nonreactive (Nonreactive)
[2021-06-16] MEDS ORDERED: *HR* Heparin 5,000 UNIT/ML VIAL IVP ONE (21:31)
[2021-06-16 21:58] LABS: Bilirubin,Urine Negative (Negative); Blood,Urine Large (Negative); Clarity,Urine Turbid (Clear); Color,Urine Yellow (Yellow); Glucose,Urine (UA) 50 mg/dL (Normal); Ketones,Urine Negative (Negative); Specific Gravity,Urine 1.025 (1.010-1.025)
[2021-06-16 21:59] LABS: Leukocyte Esterase,Urine Large (Negative); Nitrite,Urine Negative (Negative); Protein,Urine >=600 mg/dL (Neg-Trace); Urobilinogen,Urine Normal (Normal)
[2021-06-16] MEDS: DOBUTamine 1,000 MG/250 ML BAG IVC SCH (21:59)
[2021-06-16 22:00] LABS: Amorphous Sediment,Urine Few per hpf (None-Few); RBC,Urine 30-50 per hpf (0-3); Squamous Epithelial Cell,Urine Few per hpf (None-Few); WBC,Urine 15-30 per hpf (0-3)
[2021-06-16] MEDS: Heparin 25,000UNIT/250ML 1/2NS 25,000 UNIT/250 ML IV.SOLN IVC SCH (22:06)
[2021-06-16 23:16] LABS: VBG Ionized Calcium 1.08 mmol/L (1.15-1.35)
[2021-06-16] MEDS: Calcium Gluconate 1gm/50mL 1 GM/50 ML BAG IVPB PRN (23:38)
[2021-06-16 23:45] LABS: ABG Base Excess -1 mEq/L (-2 to 3); ABG HCO3 27 mEq/L (21-27); ABG Oxygen Saturation 96 % (95-98); ABG PCO2 59 mmHg (35-45); ABG PH 7.27 pH Units (7.32-7.45); ABG PO2 92 mmHg (85-104); ABG TCO2 29 mEq/L (20-26)
[2021-06-17] MEDS: Albumin 25% 25gram/100mL 25 GM/100 ML IV.SOLN IVPB SCH ×3 (00:08→16:56)
[2021-06-17] MEDS: Calcium Gluconate 1gm/50mL 1 GM/50 ML BAG IVPB PRN (00:28)
[2021-06-17 00:35] LABS: Calcium 8.5 mg/dL (8.6-10.3); Magnesium 2.4 mg/dL (1.6-2.6); Phosphorous 5.8 mg/dL (2.7-4.5); Potassium 4.9 mEq/L (3.5-5.1)
[2021-06-17] MEDS: cefTRIAXone 1,000 MG in 0.9 % Sodium Chloride 10 ML IVP SCH (02:37)
[2021-06-17 03:51] LABS: Mixed Venous Blood pCO2 66 mmHg (44-46); Mixed Venous Blood pH 7.24 pH Units (7.34-7.36); Mixed Venous Blood pO2 86 mmHg (35-45)
[2021-06-17 03:53] LABS: Basophils % 0.6 %; Immature Granulocytes % 1.4 % (0-4); Lymphocytes % 12.1 %; Segmented Neutrophils % 77.1 %
[2021-06-17 03:55] LABS: Basophils # 0.1 K/mcL (0.0-0.2); Eosinophils # 0.2 K/mcL (0.0-0.6); Eosinophils % 1.2 %; Hematocrit 35.2 % (35.3-44.9); Lymphocytes # 1.5 K/mcL (0.6-4.6); Mean Corpuscular HGB Conc 28.4 g/dL (31.6-35.5); Mean Corpuscular Hemoglobin 23.9 pg (28.0-33.3); Mean Platelet Volume 9.7 fL (9.4-12.4); Monocytes % 7.6 %; Neutrophils # 9.6 K/mcL (1.6-8.9); Platelet Count 158 K/mcL (140-400); Red Blood Count 4.19 M/mcL (3.82-4.97); Red Cell Distribution Width 18.1 % (11.5-14.5); White Blood Count 12.5 K/mcL (4.3-11.1)
[2021-06-17] MEDS: Ipratropium/Albuterol Neb 3 ML IH SCH ×6 (03:58→23:48)
[2021-06-17] MEDS: PrismaSATE BGK 4/2.5 5,000 ML CRRT SCH ×12 (04:00→22:08)
[2021-06-17 04:10] LABS: Bilirubin,Direct 0.5 mg/dL (0.0-0.2); Bilirubin,Indirect 0.6 mg/dL (0.0-1.0); Bilirubin,Total 1.1 mg/dL (0.3-1.0); Calcium 8.4 mg/dL (8.6-10.3); Globulin 3.1 g/dL (2.4-3.5); Magnesium 2.3 mg/dL (1.6-2.6); Potassium 4.7 mEq/L (3.5-5.1); Total Protein 6.1 g/dL (6.4-8.9)
[2021-06-17] MEDS: Norepinephrine 4 MG/254 ML IV.SOLN IVC SCH ×5 (04:15→23:07)
[2021-06-17 04:26] LABS: Anisocytosis 1+ (Not Present); Hypochromasia Present (Not Present); Platelet Estimate Normal (Normal); Polychromasia 1+ (Not Present)
[2021-06-17 05:52] LABS: VBG Ionized Calcium 1.14 mmol/L (1.15-1.35)
[2021-06-17] MEDS: Nystatin Cream 15 GM TUBE TP SCH ×2 (07:49→20:12)
[2021-06-17] MEDS: Lactulose Oral Soln 20 GM/30 ML UDC PO SCH ×2 (07:49→20:12)
[2021-06-17] MEDS: Heparin 25,000UNIT/250ML 1/2NS 25,000 UNIT/250 ML IV.SOLN IVC SCH ×2 (07:50→15:14)
[2021-06-17] MEDS: Nystatin POWDER 30 GM BOTTLE TP SCH ×3 (08:44→20:11)
[2021-06-17 10:03] LABS: ABG Base Excess 0 mEq/L (-2 to 3); ABG HCO3 27 mEq/L (21-27); ABG Oxygen Saturation 96 % (95-98); ABG PCO2 58 mmHg (35-45); ABG PH 7.28 pH Units (7.32-7.45); ABG PO2 97 mmHg (85-104); ABG TCO2 29 mEq/L (20-26); Blood Gas Pressure Support 16 cm H2O
[2021-06-17] MEDS ORDERED: 0.9 % Sodium Chloride 500 ML ONE (10:45)
[2021-06-17] MEDS: Insulin LISPRO 300 UNITS/3 ML VIAL SUBQ SCH ×2 (13:33→17:31)
[2021-06-17] MEDS: DOBUTamine 1,000 MG/250 ML BAG IVC SCH (14:12)
[2021-06-17] MEDS ORDERED: Lidocaine -MPF 1% 5 ML AMPUL INFILT ONE (15:55)
[2021-06-18] MEDS: Insulin LISPRO 300 UNITS/3 ML VIAL SUBQ SCH ×6 (00:32→19:29)
[2021-06-18] MEDS: PrismaSATE BGK 4/2.5 5,000 ML CRRT SCH ×14 (01:02→17:30)
[2021-06-18] MEDS: cefTRIAXone 1,000 MG in 0.9 % Sodium Chloride 10 ML IVP SCH (03:08)
[2021-06-18] MEDS: SODIUM CITRATE 500 ML CRRT SCH ×2 (03:10→07:29)
[2021-06-18 03:33] LABS: Basophils # 0.1 K/mcL (0.0-0.2); Basophils % 0.8 %; Eosinophils # 0.3 K/mcL (0.0-0.6); Eosinophils % 2.4 %; Hematocrit 33.8 % (35.3-44.9); Hemoglobin 9.8 g/dL (11.5-15.4); Immature Granulocytes % 0.9 % (0-4); Lymphocytes # 1.4 K/mcL (0.6-4.6); Mean Corpuscular Hemoglobin 24.2 pg (28.0-33.3); Mean Corpuscular Volume 83.5 fL (83.0-100.0); Mean Platelet Volume 9.8 fL (9.4-12.4); Monocytes % 8.4 %; Neutrophils # 8.6 K/mcL (1.6-8.9); Platelet Count 169 K/mcL (140-400); Red Blood Count 4.05 M/mcL (3.82-4.97); Red Cell Distribution Width 18.5 % (11.5-14.5); Segmented Neutrophils % 75.5 %; White Blood Count 11.4 K/mcL (4.3-11.1)
[2021-06-18 03:36] LABS: VBG Ionized Calcium 1.11 mmol/L (1.15-1.35)
[2021-06-18] MEDS: Ipratropium/Albuterol Neb 3 ML IH SCH ×5 (03:46→20:50)
[2021-06-18 03:56] LABS: Calcium 7.8 mg/dL (8.6-10.3); Magnesium 2.2 mg/dL (1.6-2.6); Phosphorous 3.2 mg/dL (2.7-4.5); Potassium 4.6 mEq/L (3.5-5.1)
[2021-06-18] MEDS: DOBUTamine 1,000 MG/250 ML BAG IVC SCH (07:27)
[2021-06-18] MEDS: Calcium Chloride 4,000 MG in 0.9 % Sodium Chloride 1,000 ML CRRT SCH (07:28)
[2021-06-18] MEDS: Nystatin Cream 15 GM TUBE TP SCH ×2 (07:28→19:29)
[2021-06-18] MEDS: Lactulose Oral Soln 20 GM/30 ML UDC PO SCH ×2 (07:40→19:29)
[2021-06-18] MEDS: Aspirin Enteric Coated 81 MG Tablet PO SCH (07:40)
[2021-06-18 09:05] LABS: VBG HCO3 28 mEq/L (21-27); VBG PCO2 56 mmHg (41-51); VBG PO2 167 mmHg (25-50)
[2021-06-18] MEDS: Heparin 25,000UNIT/250ML 1/2NS 25,000 UNIT/250 ML IV.SOLN IVC SCH ×3 (09:36→14:00)
[2021-06-18] MEDS: Nystatin POWDER 30 GM BOTTLE TP SCH ×3 (09:54→19:30)
[2021-06-18] MEDS: *HR* Metoprolol 5 MG/5 ML VIAL IVP SCH ×2 (09:57→16:13)
[2021-06-18] MEDS ORDERED: D10% in Water 500 ML IVC PRN (12:00)
[2021-06-18] MEDS ORDERED: 0.9 % Sodium Chloride 1,000 ML ONE (13:50)
[2021-06-18] MEDS ORDERED: *HR* Metoprolol 5 MG/5 ML VIAL IVP SCH (16:00)
[2021-06-18] MEDS ORDERED: Clinimix E 5%-15% SOLUTION 2,000 ML with MVI, adult with vitamin K 10 ML IVC SCH (17:00)
[2021-06-18] MEDS: Gabapentin 300 MG CAPSULE PO SCH (19:30)
[2021-06-19] MEDS: Ipratropium/Albuterol Neb 3 ML IH SCH ×6 (00:19→20:28)
[2021-06-19] MEDS: *HR* Metoprolol 5 MG/5 ML VIAL IVP SCH ×3 (00:35→15:10)
[2021-06-19 00:38] LABS: Alpha 2 Globulin (PEP) 0.74 g/dL (0.48-1.05); Beta Globulin (PEP) 0.92 g/dL (0.48-1.10)
[2021-06-19] MEDS: Insulin LISPRO 300 UNITS/3 ML VIAL SUBQ SCH ×6 (02:06→19:34)
[2021-06-19] MEDS: cefTRIAXone 1,000 MG in 0.9 % Sodium Chloride 10 ML IVP SCH (03:28)
[2021-06-19 03:45] LABS: VBG Ionized Calcium 1.13 mmol/L (1.15-1.35)
[2021-06-19 04:02] LABS: Albumin 3.1 g/dL (3.5-5.7); Bilirubin,Total 1.3 mg/dL (0.3-1.0); Calcium 7.9 mg/dL (8.6-10.3); Globulin 3.1 g/dL (2.4-3.5); Magnesium 2.3 mg/dL (1.6-2.6); Phosphorous 2.2 mg/dL (2.7-4.5); Potassium 4.4 mEq/L (3.5-5.1); Total Protein 6.2 g/dL (6.4-8.9)
[2021-06-19] MEDS: Heparin 25,000UNIT/250ML 1/2NS 25,000 UNIT/250 ML IV.SOLN IVC SCH ×3 (04:18→17:26)
[2021-06-19] MEDS: SODIUM CITRATE 500 ML CRRT SCH ×2 (05:26→10:17)
[2021-06-19 05:35] LABS: IFE Reflexed NOT DONE
[2021-06-19] MEDS: PrismaSATE BGK 4/2.5 5,000 ML CRRT SCH ×2 (06:05→06:06)
[2021-06-19] MEDS: Norepinephrine 4 MG/254 ML IV.SOLN IVC SCH ×5 (07:28→23:47)
[2021-06-19] MEDS: DOBUTamine 1,000 MG/250 ML BAG IVC SCH ×2 (07:29→10:16)
[2021-06-19] MEDS: Lactulose Oral Soln 20 GM/30 ML UDC PO SCH ×2 (07:30→23:46)
[2021-06-19] MEDS: Aspirin Enteric Coated 81 MG Tablet PO SCH (07:30)
[2021-06-19] MEDS: Gabapentin 300 MG CAPSULE PO SCH ×2 (07:31→23:47)
[2021-06-19] MEDS: Nystatin POWDER 30 GM BOTTLE TP SCH ×3 (07:55→23:47)
[2021-06-19] MEDS: Nystatin Cream 15 GM TUBE TP SCH ×2 (07:56→23:46)
[2021-06-19 09:09] LABS: Basophils # 0.1 K/mcL (0.0-0.2); Basophils % 0.7 %; Eosinophils # 0.3 K/mcL (0.0-0.6); Eosinophils % 3.1 %; Hematocrit 32.3 % (35.3-44.9); Hemoglobin 9.4 g/dL (11.5-15.4); Immature Granulocytes % 1.3 % (0-4); Lymphocytes # 1.4 K/mcL (0.6-4.6); Lymphocytes % 12.9 %; Mean Corpuscular HGB Conc 29.1 g/dL (31.6-35.5); Mean Corpuscular Hemoglobin 24.5 pg (28.0-33.3); Mean Corpuscular Volume 84.1 fL (83.0-100.0); Monocytes # 0.9 K/mcL (0.0-1.3); Monocytes % 8.6 %; Neutrophils # 8.1 K/mcL (1.6-8.9); Platelet Count 146 K/mcL (140-400); Red Blood Count 3.84 M/mcL (3.82-4.97); Red Cell Distribution Width 18.5 % (11.5-14.5); Segmented Neutrophils % 73.4 %
[2021-06-19] MEDS ORDERED: *HR* Heparin 5,000 UNIT/ML VIAL ONE (09:33)
[2021-06-19] MEDS: Calcium Chloride 4,000 MG in 0.9 % Sodium Chloride 1,000 ML CRRT SCH (10:15)
[2021-06-19] MEDS ORDERED: 0.9 % Sodium Chloride 250 ML IVC PRN (10:48)
[2021-06-19] MEDS ORDERED: *HR* Heparin 10,000 UNIT/10 ML VIAL IV PRN (10:48)
[2021-06-19] MEDS ORDERED: 0.9 % Sodium Chloride 1,000 ML PRIME SCH (11:00)
[2021-06-19] MEDS ORDERED: Clinimix E 5%-15% SOLUTION 2,000 ML IVC SCH (17:00)
[2021-06-19] MEDS: Acetaminophen IV 1,000 MG/100 ML BAG IVPB SCH ×2 (17:05→23:46)
[2021-06-20] MEDS: Ipratropium/Albuterol Neb 3 ML IH SCH ×7 (00:07→21:02)
[2021-06-20] MEDS: Insulin LISPRO 300 UNITS/3 ML VIAL SUBQ SCH ×7 (00:30→23:23)
[2021-06-20] MEDS: *HR* Metoprolol 5 MG/5 ML VIAL IVP SCH ×4 (00:30→22:55)
[2021-06-20 04:57] LABS: VBG Ionized Calcium 1.17 mmol/L (1.15-1.35)
[2021-06-20 05:09] LABS: Basophils % 0.6 %; Hemoglobin 9.1 g/dL (11.5-15.4)
[2021-06-20 05:11] LABS: Basophils # 0.1 K/mcL (0.0-0.2); Eosinophils # 0.4 K/mcL (0.0-0.6); Eosinophils % 3.1 %; Hematocrit 31.5 % (35.3-44.9); Immature Granulocytes % 2.5 % (0-4); Lymphocytes % 12.8 %; Mean Corpuscular HGB Conc 28.9 g/dL (31.6-35.5); Mean Corpuscular Hemoglobin 24.3 pg (28.0-33.3); Monocytes % 8.3 %; Neutrophils # 8.8 K/mcL (1.6-8.9); Nucleated Red Blood Cells 0.2 /100 WBC (0); Platelet Count 148 K/mcL (140-400); Red Blood Count 3.75 M/mcL (3.82-4.97); Red Cell Distribution Width 18.9 % (11.5-14.5); Segmented Neutrophils % 72.7 %; White Blood Count 12.1 K/mcL (4.3-11.1)
[2021-06-20 05:20] LABS: Albumin 3.2 g/dL (3.5-5.7); Bilirubin,Total 1.1 mg/dL (0.3-1.0); Calcium 8.3 mg/dL (8.6-10.3); Globulin 3.2 g/dL (2.4-3.5); Magnesium 2.5 mg/dL (1.6-2.6); Phosphorous 2.6 mg/dL (2.7-4.5); Potassium 4.3 mEq/L (3.5-5.1); Total Protein 6.4 g/dL (6.4-8.9)
[2021-06-20 05:27] LABS: Lymphocytes # 1.6 K/mcL (0.6-4.6)
[2021-06-20] MEDS: Heparin 25,000UNIT/250ML 1/2NS 25,000 UNIT/250 ML IV.SOLN IVC SCH ×3 (05:31→19:05)
[2021-06-20 05:51] LABS: Anisocytosis 1+ (Not Present); Hypochromasia Present (Not Present); Platelet Estimate Normal (Normal); Poikilocytosis 1+ (Not Present); Target Cells 1+ (Not Present)
[2021-06-20] MEDS: Norepinephrine 4 MG/254 ML IV.SOLN IVC SCH ×2 (07:29→13:31)
[2021-06-20] MEDS: SODIUM CITRATE 500 ML CRRT SCH (07:29)
[2021-06-20] MEDS: DOBUTamine 1,000 MG/250 ML BAG IVC SCH ×2 (07:29→13:18)
[2021-06-20] MEDS ORDERED: 0.9 % Sodium Chloride 250 ML IVC PRN (07:48)
[2021-06-20] MEDS ORDERED: 0.9 % Sodium Chloride 1,000 ML PRIME SCH ×2 (08:00→11:45)
[2021-06-20] MEDS: Aspirin Enteric Coated 81 MG Tablet PO SCH (09:08)
[2021-06-20] MEDS: Lactulose Oral Soln 20 GM/30 ML UDC PO SCH ×2 (09:08→20:13)
[2021-06-20] MEDS: Gabapentin 300 MG CAPSULE PO SCH ×2 (09:09→20:13)
[2021-06-20] MEDS: Nystatin Cream 15 GM TUBE TP SCH ×2 (09:09→20:14)
[2021-06-20] MEDS: Acetaminophen IV 1,000 MG/100 ML BAG IVPB SCH ×4 (09:11→22:56)
[2021-06-20] MEDS: Nystatin POWDER 30 GM BOTTLE TP SCH ×3 (09:12→20:15)
[2021-06-20] MEDS ORDERED: D10% in Water 500 ML IVC PRN ×3 (11:45→15:32)
[2021-06-20] MEDS ORDERED: Ondansetron 4 MG/2 ML VIAL IVP PRN (11:45)
[2021-06-20] MEDS ORDERED: Ipratropium/Albuterol Neb 3 ML IH PRN (11:45)
[2021-06-20] MEDS ORDERED: Clinimix E 5%-15% SOLUTION 2,000 ML IVC SCH (11:45)
[2021-06-20] MEDS ORDERED: *HR* Heparin 5,000 UNIT/ML VIAL IVP PRN ×2 (11:45)
[2021-06-20] MEDS ORDERED: Naloxone 0.4 MG/ML INJ IVP PRN (11:45)
[2021-06-20] MEDS ORDERED: Acetaminophen 325 MG TABLET PO PRN (11:45)
[2021-06-20] MEDS ORDERED: *HR* Heparin 10,000 UNIT/10 ML VIAL IV PRN (14:45)
[2021-06-20] MEDS ORDERED: Clinimix E 5%-20% SOLUTION 2,000 ML with MVI, adult with vitamin K 10 ML IVC SCH (17:00)
[2021-06-21] MEDS: Ipratropium/Albuterol Neb 3 ML IH SCH ×7 (00:37→23:15)
[2021-06-21 03:39] LABS: Platelet Count 139 K/mcL (140-400)
[2021-06-21 03:40] LABS: VBG HCO3 28 mEq/L (21-27); VBG Ionized Calcium 1.23 mmol/L (1.15-1.35); VBG PCO2 57 mmHg (41-51); VBG PO2 80 mmHg (25-50)
[2021-06-21 03:41] LABS: Hematocrit 23.3 % (35.3-44.9); Hemoglobin 6.8 g/dL (11.5-15.4); Mean Corpuscular HGB Conc 29.2 g/dL (31.6-35.5); Mean Corpuscular Hemoglobin 24.5 pg (28.0-33.3); Mean Corpuscular Volume 84.1 fL (83.0-100.0); Mean Platelet Volume 10.1 fL (9.4-12.4); Red Blood Count 2.77 M/mcL (3.82-4.97); Red Cell Distribution Width 18.8 % (11.5-14.5)
[2021-06-21] MEDS: Insulin LISPRO 300 UNITS/3 ML VIAL SUBQ SCH ×6 (04:07→23:53)
[2021-06-21 04:08] LABS: Albumin 2.6 g/dL (3.5-5.7); Albumin/Globulin Ratio 0.8 (1.1-2.2); Calcium 8.1 mg/dL (8.6-10.3); Globulin 3.1 g/dL (2.4-3.5); Magnesium 2.4 mg/dL (1.6-2.6); Phosphorous 2.9 mg/dL (2.7-4.5); Potassium 4.3 mEq/L (3.5-5.1); Total Protein 5.7 g/dL (6.4-8.9)
[2021-06-21 04:17] LABS: Anisocytosis 1+ (Not Present); Hypochromasia Present (Not Present); Lymphocytes # 2.2 K/mcL (0.6-4.6); Monocytes # 0.6 K/mcL (0.0-1.3); Neutrophils # 13.1 K/mcL (1.6-8.9); Platelet Estimate Decreased (Normal)
[2021-06-21] MEDS: DOBUTamine 1,000 MG/250 ML BAG IVC SCH ×2 (05:14→22:03)
[2021-06-21 05:15] LABS: Hematocrit 23.2 % (35.3-44.9); Hemoglobin 6.8 g/dL (11.5-15.4)
[2021-06-21] MEDS: Acetaminophen IV 1,000 MG/100 ML BAG IVPB SCH ×3 (05:45→18:45)
[2021-06-21] MEDS: Heparin 25,000UNIT/250ML 1/2NS 25,000 UNIT/250 ML IV.SOLN IVC SCH ×3 (09:01→23:53)
[2021-06-21] MEDS: Gabapentin 300 MG CAPSULE PO SCH ×2 (09:11→22:03)
[2021-06-21] MEDS: *HR* Metoprolol 5 MG/5 ML VIAL IVP SCH ×3 (09:11→23:53)
[2021-06-21] MEDS: Lactulose Oral Soln 20 GM/30 ML UDC PO SCH ×2 (09:11→22:03)
[2021-06-21] MEDS: Aspirin Enteric Coated 81 MG Tablet PO SCH (10:03)
[2021-06-21] MEDS: Nystatin POWDER 30 GM BOTTLE TP SCH ×3 (10:03→22:03)
[2021-06-21] MEDS: Nystatin Cream 15 GM TUBE TP SCH ×2 (10:04→22:03)
[2021-06-21 10:49] LABS: Basophils # 0.1 K/mcL (0.0-0.2); Basophils % 0.5 %; Eosinophils # 0.4 K/mcL (0.0-0.6); Eosinophils % 2.5 %; Hematocrit 21.4 % (35.3-44.9); Hemoglobin 6.2 g/dL (11.5-15.4); Immature Granulocytes % 3.5 % (0-4); Lymphocytes # 1.3 K/mcL (0.6-4.6); Mean Corpuscular Hemoglobin 24.5 pg (28.0-33.3); Mean Corpuscular Volume 84.6 fL (83.0-100.0); Mean Platelet Volume 9.6 fL (9.4-12.4); Monocytes # 1.1 K/mcL (0.0-1.3); Monocytes % 7.2 %; Neutrophils # 11.4 K/mcL (1.6-8.9); Nucleated Red Blood Cells 0.1 /100 WBC (0); Platelet Count 130 K/mcL (140-400); Red Blood Count 2.53 M/mcL (3.82-4.97); Red Cell Distribution Width 18.8 % (11.5-14.5); Segmented Neutrophils % 77.3 %; White Blood Count 14.7 K/mcL (4.3-11.1)
[2021-06-21] MEDS ORDERED: Clinimix E 5%-20% SOLUTION 2,000 ML IVC SCH (17:00)
[2021-06-21] MEDS: Norepinephrine 4 MG/254 ML IV.SOLN IVC SCH (18:42)
[2021-06-21 20:52] LABS: Hematocrit 25.4 % (35.3-44.9); Hemoglobin 7.6 g/dL (11.5-15.4)
[2021-06-22] MEDS: Acetaminophen IV 1,000 MG/100 ML BAG IVPB SCH ×3 (00:22→12:56)
[2021-06-22] MEDS: Norepinephrine 4 MG/254 ML IV.SOLN IVC SCH ×2 (00:22→04:59)
[2021-06-22] MEDS: *HR* Dextrose 50 % in Water (Syg) 50 ML SYRINGE IVP PRN ×2 (00:44→06:02)
[2021-06-22] MEDS: DOBUTamine 1,000 MG/250 ML BAG IVC SCH (01:35)
[2021-06-22 03:11] LABS: Basophils # 0.1 K/mcL (0.0-0.2); Basophils % 0.5 %; Eosinophils # 0.3 K/mcL (0.0-0.6); Eosinophils % 2.5 %; Hematocrit 22.9 % (35.3-44.9); Hemoglobin 6.9 g/dL (11.5-15.4); Immature Granulocytes % 2.5 % (0-4); Lymphocytes # 2.3 K/mcL (0.6-4.6); Lymphocytes % 18.2 %; Mean Corpuscular HGB Conc 30.1 g/dL (31.6-35.5); Mean Corpuscular Hemoglobin 25.7 pg (28.0-33.3); Mean Corpuscular Volume 85.1 fL (83.0-100.0); Mean Platelet Volume 9.8 fL (9.4-12.4); Monocytes % 7.9 %; Neutrophils # 8.6 K/mcL (1.6-8.9); Platelet Count 111 K/mcL (140-400); Red Blood Count 2.69 M/mcL (3.82-4.97); Red Cell Distribution Width 18.3 % (11.5-14.5); Segmented Neutrophils % 68.4 %; White Blood Count 12.6 K/mcL (4.3-11.1)
[2021-06-22 03:30] LABS: Magnesium 2.2 mg/dL (1.6-2.6); Phosphorous 3.5 mg/dL (2.7-4.5)
[2021-06-22] MEDS ORDERED: 0.9 % Sodium Chloride 250 ML ONE (03:36)
[2021-06-22 03:37] LABS: Procalcitonin 0.5 ng/mL (0.00-0.15)
[2021-06-22 04:02] LABS: Prealbumin 3.8 mg/dL (17.0-34.0)
[2021-06-22 04:05] LABS: Albumin 2.3 g/dL (3.5-5.7); Albumin/Globulin Ratio 0.8 (1.1-2.2); Bilirubin,Total 1.3 mg/dL (0.3-1.0); Calcium 8.2 mg/dL (8.6-10.3); Globulin 2.8 g/dL (2.4-3.5); Potassium 4.6 mEq/L (3.5-5.1); Total Protein 5.1 g/dL (6.4-8.9)
[2021-06-22] MEDS: Insulin LISPRO 300 UNITS/3 ML VIAL SUBQ SCH ×5 (04:13→21:13)
[2021-06-22] MEDS: Ipratropium/Albuterol Neb 3 ML IH SCH ×5 (04:30→20:14)
[2021-06-22] MEDS: Gabapentin 300 MG CAPSULE PO SCH ×2 (07:54→21:22)
[2021-06-22] MEDS: Lactulose Oral Soln 20 GM/30 ML UDC PO SCH ×2 (07:54→21:22)
[2021-06-22] MEDS: Nystatin POWDER 30 GM BOTTLE TP SCH ×3 (07:55→21:22)
[2021-06-22] MEDS: Nystatin Cream 15 GM TUBE TP SCH ×2 (07:55→21:23)
[2021-06-22] MEDS: *HR* Metoprolol 5 MG/5 ML VIAL IVP SCH (07:55)
[2021-06-22 08:16] LABS: Hematocrit 25.1 % (35.3-44.9); Hemoglobin 7.5 g/dL (11.5-15.4)
[2021-06-22 08:26] LABS: INR 1.4; Prothrombin Time 15.4 Seconds (9.4-12.1)
[2021-06-22] MEDS: Aspirin Enteric Coated 81 MG Tablet PO SCH (10:22)
[2021-06-22 12:59] LABS: Hematocrit 25.2 % (35.3-44.9); Hemoglobin 7.6 g/dL (11.5-15.4)
[2021-06-22] MEDS: Albumin Human 5% 12.5 GM/250 ML IV.SOLN IVC SCH ×2 (15:31→16:36)
[2021-06-22] MEDS ORDERED: Naloxone 0.4 MG/ML INJ IVP PRN (16:56)
[2021-06-22] MEDS ORDERED: Ipratropium/Albuterol Neb 3 ML IH PRN (16:56)
[2021-06-22] MEDS ORDERED: Ondansetron 4 MG/2 ML VIAL IVP PRN (16:56)
[2021-06-23] MEDS: Insulin LISPRO 300 UNITS/3 ML VIAL SUBQ SCH ×7 (00:26→23:28)
[2021-06-23] MEDS: Ipratropium/Albuterol Neb 3 ML IH SCH ×7 (00:29→23:53)
[2021-06-23 03:34] LABS: Basophils # 0.1 K/mcL (0.0-0.2); Basophils % 0.6 %; Eosinophils # 0.4 K/mcL (0.0-0.6); Eosinophils % 2.8 %; Hematocrit 23.8 % (35.3-44.9); Hemoglobin 7.1 g/dL (11.5-15.4); Immature Granulocytes % 3.6 % (0-4); Lymphocytes % 14.5 %; Mean Corpuscular HGB Conc 29.8 g/dL (31.6-35.5); Mean Corpuscular Hemoglobin 26.2 pg (28.0-33.3); Mean Corpuscular Volume 87.8 fL (83.0-100.0); Mean Platelet Volume 10.2 fL (9.4-12.4); Monocytes # 1.3 K/mcL (0.0-1.3); Neutrophils # 9.8 K/mcL (1.6-8.9); Nucleated Red Blood Cells 0.1 /100 WBC (0); Platelet Count 143 K/mcL (140-400); Red Blood Count 2.71 M/mcL (3.82-4.97); Red Cell Distribution Width 19.7 % (11.5-14.5); Segmented Neutrophils % 69.5 %; White Blood Count 14.1 K/mcL (4.3-11.1)
[2021-06-23 03:47] LABS: Albumin 2.9 g/dL (3.5-5.7); Albumin/Globulin Ratio 0.9 (1.1-2.2); Bilirubin,Total 1.5 mg/dL (0.3-1.0); Calcium 8.9 mg/dL (8.6-10.3); Globulin 3.1 g/dL (2.4-3.5); Potassium 5.3 mEq/L (3.5-5.1)
[2021-06-23 04:32] LABS: Heparin anti-factor XA UFH < 0.04 IU/mL (0.30-0.70); INR 1.3; Prothrombin Time 14.3 Seconds (9.4-12.1)
[2021-06-23] MEDS ORDERED: 0.9 % Sodium Chloride 250 ML ONE (05:04)
[2021-06-23] MEDS ORDERED: Calcium Gluconate 1gm/50mL 1 GM/50 ML BAG IVPB ONE (05:06)
[2021-06-23] MEDS ORDERED: SODIUM ZIRCONIUM CYCLOSILICATE 5 GM POWD.PACK PO ONE ×2 (05:06→06:00)
[2021-06-23] MEDS ORDERED: Furosemide 20 MG/2 ML VIAL IVP ONE (05:07)
[2021-06-23] MEDS ORDERED: Insulin Human Regular 10 UNIT in 0.9 % Sodium Chloride 10 ML IV ONE (05:07)
[2021-06-23] MEDS ORDERED: Dextrose 4 GM Chewable Tablets PO PRN ×2 (05:13)
[2021-06-23] MEDS ORDERED: D5% in Water 1,000 ML IVC PRN (05:13)
[2021-06-23] MEDS: *HR* Dextrose 50 % in Water (Syg) 50 ML SYRINGE IVP PRN ×2 (05:35→06:57)
[2021-06-23] MEDS: Aspirin Enteric Coated 81 MG Tablet PO SCH (08:20)
[2021-06-23] MEDS: Lactulose Oral Soln 20 GM/30 ML UDC PO SCH ×2 (08:20→21:25)
[2021-06-23] MEDS: Nystatin POWDER 30 GM BOTTLE TP SCH ×3 (08:21→21:26)
[2021-06-23] MEDS: Nystatin Cream 15 GM TUBE TP SCH ×2 (08:21→21:26)
[2021-06-23] MEDS: Gabapentin 300 MG CAPSULE PO SCH ×2 (08:21→21:25)
[2021-06-23 16:17] LABS: Hematocrit 24.5 % (35.3-44.9); Hemoglobin 7.4 g/dL (11.5-15.4)
[2021-06-24 00:48] LABS: Hematocrit 27.2 % (35.3-44.9); Hemoglobin 8.3 g/dL (11.5-15.4)
[2021-06-24] MEDS: Ipratropium/Albuterol Neb 3 ML IH SCH ×6 (04:21→23:38)
[2021-06-24 04:43] LABS: Hematocrit 27.2 % (35.3-44.9); Hemoglobin 8.2 g/dL (11.5-15.4)
[2021-06-24] MEDS: Gabapentin 300 MG CAPSULE PO SCH ×2 (08:05→21:20)
[2021-06-24] MEDS: Insulin LISPRO 300 UNITS/3 ML VIAL SUBQ SCH ×5 (08:07→21:19)
[2021-06-24] MEDS: Lactulose Oral Soln 20 GM/30 ML UDC PO SCH ×2 (08:08→21:19)
[2021-06-24] MEDS: Aspirin Enteric Coated 81 MG Tablet PO SCH (08:08)
[2021-06-24] MEDS: Nystatin Cream 15 GM TUBE TP SCH ×2 (08:08→21:21)
[2021-06-24] MEDS: Nystatin POWDER 30 GM BOTTLE TP SCH ×3 (08:08→21:21)
[2021-06-24 08:33] LABS: Basophils # 0.1 K/mcL (0.0-0.2); Basophils % 0.8 %; Eosinophils # 0.3 K/mcL (0.0-0.6); Eosinophils % 2.9 %; Hematocrit 27.6 % (35.3-44.9); Immature Granulocytes % 4.3 % (0-4); Mean Corpuscular Hemoglobin 26.1 pg (28.0-33.3); Mean Corpuscular Volume 90.2 fL (83.0-100.0); Mean Platelet Volume 9.8 fL (9.4-12.4); Monocytes % 8.7 %; Neutrophils # 7.8 K/mcL (1.6-8.9); Nucleated Red Blood Cells 0.3 /100 WBC (0); Platelet Count 165 K/mcL (140-400); Red Blood Count 3.06 M/mcL (3.82-4.97); Red Cell Distribution Width 20.9 % (11.5-14.5); Segmented Neutrophils % 66.3 %; White Blood Count 11.7 K/mcL (4.3-11.1)
[2021-06-24 08:46] LABS: Calcium 9.1 mg/dL (8.6-10.3)
[2021-06-25] MEDS: Insulin LISPRO 300 UNITS/3 ML VIAL SUBQ SCH ×6 (00:44→21:25)
[2021-06-25] MEDS: Ipratropium/Albuterol Neb 3 ML IH SCH ×6 (03:50→23:48)
[2021-06-25] MEDS: Gabapentin 300 MG CAPSULE PO SCH ×2 (08:25→21:29)
[2021-06-25] MEDS: Lactulose Oral Soln 20 GM/30 ML UDC PO SCH ×2 (08:25→21:26)
[2021-06-25] MEDS: Aspirin Enteric Coated 81 MG Tablet PO SCH (08:25)
[2021-06-25] MEDS: Nystatin POWDER 30 GM BOTTLE TP SCH ×3 (08:26→21:29)
[2021-06-25] MEDS: Nystatin Cream 15 GM TUBE TP SCH ×2 (08:26→21:29)
[2021-06-25 08:57] LABS: Basophils # 0.1 K/mcL (0.0-0.2); Basophils % 0.4 %; Eosinophils # 0.3 K/mcL (0.0-0.6); Eosinophils % 2.7 %; Hematocrit 28.1 % (35.3-44.9); Hemoglobin 8.3 g/dL (11.5-15.4); Immature Granulocytes % 3.2 % (0-4); Lymphocytes # 1.7 K/mcL (0.6-4.6); Mean Corpuscular HGB Conc 29.5 g/dL (31.6-35.5); Mean Corpuscular Hemoglobin 26.4 pg (28.0-33.3); Mean Corpuscular Volume 89.5 fL (83.0-100.0); Mean Platelet Volume 9.5 fL (9.4-12.4); Monocytes # 1.1 K/mcL (0.0-1.3); Monocytes % 8.5 %; Neutrophils # 8.8 K/mcL (1.6-8.9); Platelet Count 221 K/mcL (140-400); Red Blood Count 3.14 M/mcL (3.82-4.97); Red Cell Distribution Width 21.6 % (11.5-14.5); Segmented Neutrophils % 71.2 %; White Blood Count 12.4 K/mcL (4.3-11.1)
[2021-06-25 09:14] LABS: BUN/Creatinine Ratio 33 (6-26); Blood Urea Nitrogen 34 mg/dL (8-23); Calcium 9.3 mg/dL (8.6-10.3); Carbon Dioxide 29 mEq/L (23-29); Chloride 106 mEq/L (98-107); Glucose 109 mg/dL (70-105); Osmolality,Calculated 292 (280-300); Potassium 5.2 mEq/L (3.5-5.1); Sodium 137 mEq/L (136-145); eGFR For African Americans > 60 (> 60); eGFR For Non-African Americans 53 (> 60)
[2021-06-26] MEDS: Insulin LISPRO 300 UNITS/3 ML VIAL SUBQ SCH ×6 (00:55→20:11)
[2021-06-26] MEDS: Ipratropium/Albuterol Neb 3 ML IH SCH ×5 (03:18→20:48)
[2021-06-26 06:13] LABS: Hemoglobin 8.2 g/dL (11.5-15.4); Mean Corpuscular Hemoglobin 26.5 pg (28.0-33.3)
[2021-06-26 06:14] LABS: Basophils # 0.1 K/mcL (0.0-0.2); Basophils % 0.6 %; Eosinophils # 0.3 K/mcL (0.0-0.6); Eosinophils % 2.4 %; Hematocrit 28.7 % (35.3-44.9); Immature Granulocytes % 2.1 % (0-4); Immature Platelets 2.8 % (1.1-6.1); Lymphocytes % 17.3 %; Mean Corpuscular HGB Conc 28.6 g/dL (31.6-35.5); Mean Corpuscular Volume 92.6 fL (83.0-100.0); Mean Platelet Volume 9.9 fL (9.4-12.4); Platelet Count 216 K/mcL (140-400); Red Cell Distribution Width 22.2 % (11.5-14.5); Segmented Neutrophils % 68.6 %; White Blood Count 11.3 K/mcL (4.3-11.1)
[2021-06-26 06:26] LABS: % Iron Saturation 8 % (15-50); BUN/Creatinine Ratio 31 (6-26); Blood Urea Nitrogen 29 mg/dL (8-23); Calcium 9.3 mg/dL (8.6-10.3); Carbon Dioxide 26 mEq/L (23-29); Chloride 105 mEq/L (98-107); Iron 28 mcg/dL (50-170); Neutrophils # 7.8 K/mcL (1.6-8.9); Potassium 5.4 mEq/L (3.5-5.1); Sodium 139 mEq/L (136-145); Transferrin 265 mg/dL (203-362); eGFR For African Americans > 60 (> 60); eGFR For Non-African Americans > 60 (> 60)
[2021-06-26 06:28] LABS: Ferritin 27 ng/mL (10-120)
[2021-06-26] MEDS ORDERED: Iron Sucrose Complex 400 MG in 0.9 % Sodium Chloride 250 ML IVPB ONE ×2 (07:50→14:30)
[2021-06-26] MEDS: Furosemide 40 MG TABLET PO SCH (08:31)
[2021-06-26] MEDS: Gabapentin 300 MG CAPSULE PO SCH ×2 (08:31→20:10)
[2021-06-26] MEDS: Lactulose Oral Soln 20 GM/30 ML UDC PO SCH ×2 (08:31→20:11)
[2021-06-26] MEDS: Aspirin Enteric Coated 81 MG Tablet PO SCH (08:31)
[2021-06-26 08:54] LABS: Glucose 101 mg/dL (70-105); Osmolality,Calculated 294 (280-300)
[2021-06-26] MEDS: Nystatin Cream 15 GM TUBE TP SCH ×2 (09:00→20:12)
[2021-06-26] MEDS: Nystatin POWDER 30 GM BOTTLE TP SCH ×3 (09:00→20:12)
[2021-06-26 09:31] LABS: Anisocytosis 1+ (Not Present); Hypochromasia Present (Not Present); Platelet Estimate Normal (Normal)
[2021-06-27] MEDS: Ipratropium/Albuterol Neb 3 ML IH SCH ×7 (00:11→23:41)
[2021-06-27] MEDS: Insulin LISPRO 300 UNITS/3 ML VIAL SUBQ SCH ×8 (03:26→23:48)
[2021-06-27 04:05] LABS: Basophils % 0.4 %; Eosinophils # 0.2 K/mcL (0.0-0.6); Eosinophils % 2.3 %; Hematocrit 26.9 % (35.3-44.9); Hemoglobin 7.9 g/dL (11.5-15.4); Lymphocytes # 1.4 K/mcL (0.6-4.6); Lymphocytes % 13.4 %; Mean Corpuscular HGB Conc 29.4 g/dL (31.6-35.5); Mean Corpuscular Hemoglobin 27.1 pg (28.0-33.3); Mean Corpuscular Volume 92.1 fL (83.0-100.0); Mean Platelet Volume 9.7 fL (9.4-12.4); Monocytes # 1.1 K/mcL (0.0-1.3); Monocytes % 10.8 %; Neutrophils # 7.3 K/mcL (1.6-8.9); Platelet Count 268 K/mcL (140-400); Red Blood Count 2.92 M/mcL (3.82-4.97); Red Cell Distribution Width 22.3 % (11.5-14.5); Segmented Neutrophils % 71.1 %; White Blood Count 10.3 K/mcL (4.3-11.1)
[2021-06-27 04:24] LABS: BUN/Creatinine Ratio 30 (6-26); Blood Urea Nitrogen 26 mg/dL (8-23); Carbon Dioxide 29 mEq/L (23-29); Chloride 107 mEq/L (98-107); Glucose 91 mg/dL (70-105); Osmolality,Calculated 292 (280-300); Sodium 139 mEq/L (136-145); eGFR For African Americans > 60 (> 60); eGFR For Non-African Americans > 60 (> 60)
[2021-06-27] MEDS: Gabapentin 300 MG CAPSULE PO SCH ×2 (09:29→22:57)
[2021-06-27] MEDS: Lactulose Oral Soln 20 GM/30 ML UDC PO SCH ×2 (09:29→21:15)
[2021-06-27] MEDS: Aspirin Enteric Coated 81 MG Tablet PO SCH (09:30)
[2021-06-27] MEDS: Furosemide 40 MG TABLET PO SCH (09:30)
[2021-06-27] MEDS: Nystatin POWDER 30 GM BOTTLE TP SCH ×3 (09:30→21:15)
[2021-06-27] MEDS: Nystatin Cream 15 GM TUBE TP SCH ×2 (15:59→21:15)
[2021-06-27] MEDS ORDERED: Amiodarone Premix 150 MG/100 ML BAG IVPB ONE (19:39)
[2021-06-28] MEDS: Ipratropium/Albuterol Neb 3 ML IH SCH ×6 (03:03→23:32)
[2021-06-28] MEDS: Insulin LISPRO 300 UNITS/3 ML VIAL SUBQ SCH ×5 (05:12→20:00)
[2021-06-28 05:59] LABS: Monocytes % 11.2 %; Red Cell Distribution Width 22.4 % (11.5-14.5)
[2021-06-28 06:00] LABS: Basophils # 0.1 K/mcL (0.0-0.2); Basophils % 0.9 %; Eosinophils # 0.4 K/mcL (0.0-0.6); Eosinophils % 3.8 %; Hematocrit 30.6 % (35.3-44.9); Hemoglobin 8.7 g/dL (11.5-15.4); Immature Granulocytes % 1.5 % (0-4); Lymphocytes # 1.4 K/mcL (0.6-4.6); Mean Corpuscular HGB Conc 28.4 g/dL (31.6-35.5); Mean Corpuscular Hemoglobin 26.6 pg (28.0-33.3); Mean Corpuscular Volume 93.6 fL (83.0-100.0); Mean Platelet Volume 9.5 fL (9.4-12.4); Monocytes # 1.1 K/mcL (0.0-1.3); Platelet Count 322 K/mcL (140-400); Red Blood Count 3.27 M/mcL (3.82-4.97); Segmented Neutrophils % 68.6 %; White Blood Count 10.2 K/mcL (4.3-11.1)
[2021-06-28 06:19] LABS: BUN/Creatinine Ratio 32 (6-26); Blood Urea Nitrogen 26 mg/dL (8-23); Calcium 9.2 mg/dL (8.6-10.3); Carbon Dioxide 28 mEq/L (23-29); Chloride 106 mEq/L (98-107); Glucose 114 mg/dL (70-105); Osmolality,Calculated 290 (280-300); Potassium 5.3 mEq/L (3.5-5.1); Sodium 137 mEq/L (136-145); eGFR For African Americans > 60 (> 60); eGFR For Non-African Americans > 60 (> 60)
[2021-06-28 06:26] LABS: Anisocytosis 3+ (Not Present); Platelet Estimate Normal (Normal); Polychromasia 1+ (Not Present)
[2021-06-28 06:27] LABS: Hypochromasia Present (Not Present)
[2021-06-28] MEDS: Nystatin POWDER 30 GM BOTTLE TP SCH ×3 (09:23→23:18)
[2021-06-28] MEDS: Lactulose Oral Soln 20 GM/30 ML UDC PO SCH ×2 (09:23→23:11)
[2021-06-28] MEDS: Nystatin Cream 15 GM TUBE TP SCH ×2 (09:23→23:16)
[2021-06-28] MEDS: Aspirin Enteric Coated 81 MG Tablet PO SCH (09:23)
[2021-06-28] MEDS: Gabapentin 300 MG CAPSULE PO SCH ×2 (09:23→23:12)
[2021-06-28] MEDS: Furosemide 40 MG TABLET PO SCH (09:23)
[2021-06-28] MEDS ORDERED: Insulin Human Regular 10 UNIT in 0.9 % Sodium Chloride 10 ML IV ONE (10:22)
[2021-06-28] MEDS ORDERED: *HR* Dextrose 50 % in Water (Vial) 50 ML VIAL IVP ONE (10:22)
[2021-06-29] MEDS: Insulin LISPRO 300 UNITS/3 ML VIAL SUBQ SCH ×5 (00:27→18:42)
[2021-06-29] MEDS: Ipratropium/Albuterol Neb 3 ML IH SCH ×5 (03:43→20:23)
[2021-06-29 05:41] LABS: Basophils # 0.1 K/mcL (0.0-0.2); Basophils % 0.7 %; Eosinophils # 0.5 K/mcL (0.0-0.6); Eosinophils % 4.1 %; Hematocrit 27.9 % (35.3-44.9); Hemoglobin 8.2 g/dL (11.5-15.4); Immature Granulocytes % 1.1 % (0-4); Lymphocytes # 1.7 K/mcL (0.6-4.6); Lymphocytes % 15.2 %; Mean Corpuscular HGB Conc 29.4 g/dL (31.6-35.5); Mean Corpuscular Hemoglobin 27.3 pg (28.0-33.3); Mean Platelet Volume 9.3 fL (9.4-12.4); Monocytes # 1.1 K/mcL (0.0-1.3); Monocytes % 10.2 %; Neutrophils # 7.6 K/mcL (1.6-8.9); Platelet Count 329 K/mcL (140-400); Red Cell Distribution Width 22.4 % (11.5-14.5); Segmented Neutrophils % 68.7 %
[2021-06-29 06:39] LABS: BUN/Creatinine Ratio 29 (6-26); Blood Urea Nitrogen 25 mg/dL (8-23); Calcium 9.2 mg/dL (8.6-10.3); Carbon Dioxide 28 mEq/L (23-29); Chloride 105 mEq/L (98-107); Glucose 107 mg/dL (70-105); Osmolality,Calculated 291 (280-300); Sodium 138 mEq/L (136-145); eGFR For African Americans > 60 (> 60); eGFR For Non-African Americans > 60 (> 60)
[2021-06-29] MEDS: Lactulose Oral Soln 20 GM/30 ML UDC PO SCH ×2 (08:56→20:17)
[2021-06-29] MEDS: Nystatin POWDER 30 GM BOTTLE TP SCH ×3 (08:57→20:17)
[2021-06-29] MEDS: Gabapentin 300 MG CAPSULE PO SCH ×2 (08:57→20:16)
[2021-06-29] MEDS: Aspirin Enteric Coated 81 MG Tablet PO SCH (08:57)
[2021-06-29] MEDS: Furosemide 40 MG TABLET PO SCH (08:57)
[2021-06-29] MEDS: Nystatin Cream 15 GM TUBE TP SCH ×2 (08:57→20:17)
[2021-06-30] MEDS: Ipratropium/Albuterol Neb 3 ML IH SCH ×7 (00:46→23:19)
[2021-06-30] MEDS: Insulin LISPRO 300 UNITS/3 ML VIAL SUBQ SCH ×4 (05:48→16:43)
[2021-06-30] MEDS: Lactulose Oral Soln 20 GM/30 ML UDC PO SCH ×3 (08:15→20:08)
[2021-06-30] MEDS: Aspirin Enteric Coated 81 MG Tablet PO SCH (08:16)
[2021-06-30] MEDS: Nystatin Cream 15 GM TUBE TP SCH ×2 (08:16→20:09)
[2021-06-30] MEDS: Furosemide 40 MG TABLET PO SCH (08:16)
[2021-06-30] MEDS: Nystatin POWDER 30 GM BOTTLE TP SCH ×3 (08:16→20:09)
[2021-06-30] MEDS: Gabapentin 300 MG CAPSULE PO SCH ×2 (08:16→20:10)
[2021-06-30 10:44] LABS: Hemoglobin 8.2 g/dL (11.5-15.4); Mean Platelet Volume 9.3 fL (9.4-12.4)
[2021-06-30 10:46] LABS: Eosinophils # 0.4 K/mcL (0.0-0.6); Hematocrit 28.5 % (35.3-44.9); Mean Corpuscular HGB Conc 28.8 g/dL (31.6-35.5); Mean Corpuscular Hemoglobin 27.3 pg (28.0-33.3); Platelet Count 306 K/mcL (140-400); Red Cell Distribution Width 22.8 % (11.5-14.5)
[2021-06-30 10:52] LABS: BUN/Creatinine Ratio 25 (6-26); Blood Urea Nitrogen 24 mg/dL (8-23); Calcium 9.1 mg/dL (8.6-10.3); Carbon Dioxide 31 mEq/L (23-29); Chloride 105 mEq/L (98-107); Glucose 106 mg/dL (70-105); Osmolality,Calculated 294 (280-300); Potassium 4.8 mEq/L (3.5-5.1); Sodium 140 mEq/L (136-145); eGFR For African Americans > 60 (> 60); eGFR For Non-African Americans 59 (> 60)
[2021-06-30 12:47] LABS: Anisocytosis 2+ (Not Present); Hypochromasia Present (Not Present); Lymphocytes # 1.2 K/mcL (0.6-4.6); Monocytes # 1.2 K/mcL (0.0-1.3); Neutrophils # 7.2 K/mcL (1.6-8.9); Platelet Estimate Normal (Normal)
[2021-07-01] MEDS: Ipratropium/Albuterol Neb 3 ML IH SCH ×7 (04:29→23:31)
[2021-07-01] MEDS: Insulin LISPRO 300 UNITS/3 ML VIAL SUBQ SCH ×3 (07:05→15:50)
[2021-07-01] MEDS: Nystatin POWDER 30 GM BOTTLE TP SCH ×3 (07:26→21:47)
[2021-07-01] MEDS: Gabapentin 300 MG CAPSULE PO SCH ×2 (07:26→21:47)
[2021-07-01] MEDS: Nystatin Cream 15 GM TUBE TP SCH ×2 (07:26→21:47)
[2021-07-01] MEDS: Aspirin Enteric Coated 81 MG Tablet PO SCH (07:26)
[2021-07-01] MEDS: Furosemide 40 MG TABLET PO SCH (07:26)
[2021-07-01] MEDS: Lactulose Oral Soln 20 GM/30 ML UDC PO SCH ×2 (07:27→20:37)
[2021-07-01 08:20] LABS: BUN/Creatinine Ratio 23 (6-26); Blood Urea Nitrogen 24 mg/dL (8-23); Calcium 9.1 mg/dL (8.6-10.3); Carbon Dioxide 31 mEq/L (23-29); Chloride 105 mEq/L (98-107); Glucose 99 mg/dL (70-105); Osmolality,Calculated 294 (280-300); Potassium 4.5 mEq/L (3.5-5.1); Sodium 140 mEq/L (136-145); eGFR For African Americans > 60 (> 60); eGFR For Non-African Americans 53 (> 60)
[2021-07-01 10:59] LABS: Basophils # 0.1 K/mcL (0.0-0.2); Basophils % 0.6 %; Eosinophils # 0.4 K/mcL (0.0-0.6); Eosinophils % 3.3 %; Hemoglobin 8.3 g/dL (11.5-15.4); Immature Granulocytes % 1.4 % (0-4); Lymphocytes # 1.5 K/mcL (0.6-4.6); Lymphocytes % 11.6 %; Mean Corpuscular HGB Conc 29.6 g/dL (31.6-35.5); Mean Corpuscular Hemoglobin 27.8 pg (28.0-33.3); Mean Corpuscular Volume 93.6 fL (83.0-100.0); Mean Platelet Volume 9.8 fL (9.4-12.4); Monocytes # 0.8 K/mcL (0.0-1.3); Monocytes % 6.6 %; Neutrophils # 9.5 K/mcL (1.6-8.9); Platelet Count 307 K/mcL (140-400); Red Blood Count 2.99 M/mcL (3.82-4.97); Red Cell Distribution Width 22.6 % (11.5-14.5); Segmented Neutrophils % 76.5 %; White Blood Count 12.5 K/mcL (4.3-11.1)
[2021-07-02] MEDS: Ipratropium/Albuterol Neb 3 ML IH SCH ×6 (03:41→23:01)
[2021-07-02 06:15] LABS: Eosinophils % 3.3 %
[2021-07-02 06:17] LABS: Basophils # 0.1 K/mcL (0.0-0.2); Basophils % 0.9 %; Eosinophils # 0.4 K/mcL (0.0-0.6); Hematocrit 32.8 % (35.3-44.9); Hemoglobin 9.1 g/dL (11.5-15.4); Lymphocytes # 1.5 K/mcL (0.6-4.6); Lymphocytes % 13.9 %; Mean Corpuscular HGB Conc 27.7 g/dL (31.6-35.5); Mean Corpuscular Hemoglobin 26.3 pg (28.0-33.3); Mean Corpuscular Volume 94.8 fL (83.0-100.0); Mean Platelet Volume 9.1 fL (9.4-12.4); Monocytes # 0.7 K/mcL (0.0-1.3); Monocytes % 6.6 %; Platelet Count 277 K/mcL (140-400); Red Blood Count 3.46 M/mcL (3.82-4.97); Red Cell Distribution Width 22.9 % (11.5-14.5); Segmented Neutrophils % 74.3 %; White Blood Count 10.8 K/mcL (4.3-11.1)
[2021-07-02 06:42] LABS: BUN/Creatinine Ratio 25 (6-26); Blood Urea Nitrogen 23 mg/dL (8-23); Calcium 9.3 mg/dL (8.6-10.3); Carbon Dioxide 29 mEq/L (23-29); Chloride 105 mEq/L (98-107); Glucose 84 mg/dL (70-105); Osmolality,Calculated 293 (280-300); Potassium 4.6 mEq/L (3.5-5.1); Sodium 140 mEq/L (136-145); eGFR For African Americans > 60 (> 60); eGFR For Non-African Americans > 60 (> 60)
[2021-07-02 06:59] LABS: Anisocytosis 3+ (Not Present); Hypochromasia Present (Not Present); Platelet Estimate Normal (Normal); Polychromasia 1+ (Not Present)
[2021-07-02] MEDS: Gabapentin 300 MG CAPSULE PO SCH ×2 (08:22→19:59)
[2021-07-02] MEDS: Aspirin Enteric Coated 81 MG Tablet PO SCH (08:22)
[2021-07-02] MEDS: Insulin LISPRO 300 UNITS/3 ML VIAL SUBQ SCH ×3 (08:22→17:12)
[2021-07-02] MEDS: Furosemide 40 MG TABLET PO SCH (08:22)
[2021-07-02] MEDS: Nystatin POWDER 30 GM BOTTLE TP SCH ×3 (08:24→19:59)
[2021-07-02] MEDS: Nystatin Cream 15 GM TUBE TP SCH ×2 (08:24→20:00)
[2021-07-02] MEDS: Lactulose Oral Soln 20 GM/30 ML UDC PO SCH ×2 (08:24→19:59)
[2021-07-02] MEDS ORDERED: Acetaminophen 325 MG TABLET PO PRN (14:27)
[2021-07-03] MEDS: Ipratropium/Albuterol Neb 3 ML IH SCH ×6 (03:55→23:28)
[2021-07-03] MEDS: Furosemide 40 MG TABLET PO SCH (08:06)
[2021-07-03] MEDS: Insulin LISPRO 300 UNITS/3 ML VIAL SUBQ SCH ×3 (08:06→16:25)
[2021-07-03] MEDS: Gabapentin 300 MG CAPSULE PO SCH ×2 (08:06→19:29)
[2021-07-03] MEDS: Aspirin Enteric Coated 81 MG Tablet PO SCH (08:07)
[2021-07-03] MEDS: Nystatin Cream 15 GM TUBE TP SCH ×2 (08:08→19:30)
[2021-07-03] MEDS: Lactulose Oral Soln 20 GM/30 ML UDC PO SCH ×2 (08:08→19:30)
[2021-07-03] MEDS: Nystatin POWDER 30 GM BOTTLE TP SCH ×3 (08:09→19:29)
[2021-07-03] MEDS ORDERED: atenoloL 25 MG TABLET PO SCH (09:00)
[2021-07-04] MEDS: Ipratropium/Albuterol Neb 3 ML IH SCH ×6 (03:46→23:55)
[2021-07-04] MEDS: Insulin LISPRO 300 UNITS/3 ML VIAL SUBQ SCH ×3 (06:57→16:35)
[2021-07-04] MEDS: Gabapentin 300 MG CAPSULE PO SCH ×2 (07:19→20:03)
[2021-07-04] MEDS: Furosemide 40 MG TABLET PO SCH (07:19)
[2021-07-04] MEDS: Aspirin Enteric Coated 81 MG Tablet PO SCH (07:19)
[2021-07-04] MEDS: Lactulose Oral Soln 20 GM/30 ML UDC PO SCH (07:20)
[2021-07-04] MEDS: Nystatin Cream 15 GM TUBE TP SCH ×2 (07:20→20:04)
[2021-07-04] MEDS: Nystatin POWDER 30 GM BOTTLE TP SCH ×3 (07:20→20:04)
[2021-07-05 01:45] LABS: Basophils % 1.1 %; Eosinophils % 4.2 %; Immature Granulocytes % 2.4 % (0-4); Mean Corpuscular Volume 94.4 fL (83.0-100.0)
[2021-07-05 01:59] LABS: Basophils # 0.1 K/mcL (0.0-0.2); Eosinophils # 0.5 K/mcL (0.0-0.6); Hematocrit 31.8 % (35.3-44.9); Hemoglobin 9.3 g/dL (11.5-15.4); Lymphocytes # 1.6 K/mcL (0.6-4.6); Lymphocytes % 14.4 %; Mean Corpuscular HGB Conc 29.2 g/dL (31.6-35.5); Mean Corpuscular Hemoglobin 27.6 pg (28.0-33.3); Mean Platelet Volume 9.7 fL (9.4-12.4); Monocytes % 8.5 %; Neutrophils # 7.9 K/mcL (1.6-8.9); Nucleated Red Blood Cells 0.4 /100 WBC (0); Platelet Count 275 K/mcL (140-400); Red Blood Count 3.37 M/mcL (3.82-4.97); Red Cell Distribution Width 23.1 % (11.5-14.5); Segmented Neutrophils % 69.4 %; White Blood Count 11.4 K/mcL (4.3-11.1)
[2021-07-05 02:00] LABS: BUN/Creatinine Ratio 26 (6-26); Blood Urea Nitrogen 27 mg/dL (8-23); Calcium 9.4 mg/dL (8.6-10.3); Carbon Dioxide 32 mEq/L (23-29); Chloride 102 mEq/L (98-107); Glucose 99 mg/dL (70-105); Osmolality,Calculated 291 (280-300); Potassium 4.4 mEq/L (3.5-5.1); Sodium 138 mEq/L (136-145); eGFR For African Americans > 60 (> 60); eGFR For Non-African Americans 53 (> 60)
[2021-07-05 03:16] LABS: Anisocytosis 2+ (Not Present); Hypochromasia Present (Not Present); Macrocytosis Present (Not Present); Platelet Estimate Normal (Normal); Polychromasia 1+ (Not Present)
[2021-07-05] MEDS: Ipratropium/Albuterol Neb 3 ML IH SCH ×6 (03:51→23:34)
[2021-07-05] MEDS: Insulin LISPRO 300 UNITS/3 ML VIAL SUBQ SCH ×3 (08:02→16:09)
[2021-07-05] MEDS: Gabapentin 300 MG CAPSULE PO SCH ×2 (08:47→20:39)
[2021-07-05] MEDS: Furosemide 40 MG TABLET PO SCH (08:48)
[2021-07-05] MEDS: Nystatin Cream 15 GM TUBE TP SCH ×2 (08:48→20:39)
[2021-07-05] MEDS: Aspirin Enteric Coated 81 MG Tablet PO SCH (08:48)
[2021-07-05] MEDS: Nystatin POWDER 30 GM BOTTLE TP SCH ×3 (08:48→20:39)
[2021-07-06] MEDS: Ipratropium/Albuterol Neb 3 ML IH SCH ×6 (03:30→23:38)
[2021-07-06] MEDS: Insulin LISPRO 300 UNITS/3 ML VIAL SUBQ SCH ×3 (11:03→17:17)
[2021-07-06] MEDS: Gabapentin 300 MG CAPSULE PO SCH ×2 (11:19→21:46)
[2021-07-06] MEDS: Furosemide 40 MG TABLET PO SCH (11:19)
[2021-07-06] MEDS: Nystatin Cream 15 GM TUBE TP SCH ×2 (11:19→21:51)
[2021-07-06] MEDS: Aspirin Enteric Coated 81 MG Tablet PO SCH (11:19)
[2021-07-06] MEDS: Nystatin POWDER 30 GM BOTTLE TP SCH ×3 (11:20→21:51)
[2021-07-07] MEDS: Ipratropium/Albuterol Neb 3 ML IH SCH ×6 (03:49→23:47)
[2021-07-07] MEDS: Insulin LISPRO 300 UNITS/3 ML VIAL SUBQ SCH ×3 (09:21→16:18)
[2021-07-07] MEDS: Nystatin POWDER 30 GM BOTTLE TP SCH ×3 (09:21→20:25)
[2021-07-07] MEDS: Furosemide 40 MG TABLET PO SCH ×2 (09:21→20:25)
[2021-07-07] MEDS: Nystatin Cream 15 GM TUBE TP SCH ×2 (09:21→20:25)
[2021-07-07] MEDS: Aspirin Enteric Coated 81 MG Tablet PO SCH (09:21)
[2021-07-07] MEDS: Gabapentin 300 MG CAPSULE PO SCH ×2 (09:21→20:24)
[2021-07-08] MEDS: Ipratropium/Albuterol Neb 3 ML IH SCH ×6 (04:28→23:58)
[2021-07-08] MEDS: Insulin LISPRO 300 UNITS/3 ML VIAL SUBQ SCH ×3 (09:26→16:59)
[2021-07-08] MEDS: Furosemide 40 MG TABLET PO SCH ×2 (09:32→17:05)
[2021-07-08] MEDS: Gabapentin 300 MG CAPSULE PO SCH ×2 (09:32→20:44)
[2021-07-08] MEDS: Aspirin Enteric Coated 81 MG Tablet PO SCH (09:32)
[2021-07-08] MEDS: Nystatin Cream 15 GM TUBE TP SCH ×3 (09:34→20:44)
[2021-07-08] MEDS: Nystatin POWDER 30 GM BOTTLE TP SCH ×3 (09:34→20:44)
[2021-07-08 13:22] LABS: Calcium 9.1 mg/dL (8.6-10.3); Potassium 3.5 mEq/L (3.5-5.1)
[2021-07-09] MEDS: Ipratropium/Albuterol Neb 3 ML IH SCH ×5 (04:15→20:09)
[2021-07-09] MEDS: Aspirin Enteric Coated 81 MG Tablet PO SCH (07:22)
[2021-07-09] MEDS: Nystatin Cream 15 GM TUBE TP SCH ×2 (07:22→22:04)
[2021-07-09] MEDS: Insulin LISPRO 300 UNITS/3 ML VIAL SUBQ SCH ×3 (07:22→17:26)
[2021-07-09] MEDS: Gabapentin 300 MG CAPSULE PO SCH ×2 (07:22→22:03)
[2021-07-09] MEDS: Furosemide 40 MG TABLET PO SCH ×2 (07:22→17:20)
[2021-07-09] MEDS: Nystatin POWDER 30 GM BOTTLE TP SCH ×3 (07:22→22:04)
[2021-07-09] MEDS ORDERED: Magnesium Sulfate 1 GM/102 ML PIGGYBACK IVPB ONE (13:01)
[2021-07-09] MEDS ORDERED: Potassium Chloride Elixir 20 MEQ/15 ML UDC PO ONE (13:01)
[2021-07-10] MEDS: Ipratropium/Albuterol Neb 3 ML IH SCH ×6 (00:15→20:34)
[2021-07-10 04:35] LABS: Hemoglobin 9.3 g/dL (11.5-15.4)
[2021-07-10 04:37] LABS: Hematocrit 32.1 % (35.3-44.9); Mean Corpuscular Hemoglobin 27.1 pg (28.0-33.3); Mean Corpuscular Volume 93.6 fL (83.0-100.0); Platelet Count 238 K/mcL (140-400); Red Blood Count 3.43 M/mcL (3.82-4.97); Red Cell Distribution Width 23.8 % (11.5-14.5); White Blood Count 9.9 K/mcL (4.3-11.1)
[2021-07-10 04:47] LABS: BUN/Creatinine Ratio 21 (6-26); Blood Urea Nitrogen 22 mg/dL (8-23); Calcium 8.9 mg/dL (8.6-10.3); Carbon Dioxide 36 mEq/L (23-29); Chloride 99 mEq/L (98-107); Glucose 96 mg/dL (70-105); Osmolality,Calculated 291 (280-300); Potassium 3.7 mEq/L (3.5-5.1); Sodium 139 mEq/L (136-145); eGFR For African Americans > 60 (> 60); eGFR For Non-African Americans 54 (> 60)
[2021-07-10] MEDS: Insulin LISPRO 300 UNITS/3 ML VIAL SUBQ SCH ×3 (07:45→16:37)
[2021-07-10] MEDS: Gabapentin 300 MG CAPSULE PO SCH ×2 (09:53→20:12)
[2021-07-10] MEDS: Aspirin Enteric Coated 81 MG Tablet PO SCH (09:53)
[2021-07-10] MEDS: Nystatin Cream 15 GM TUBE TP SCH ×2 (09:54→20:12)
[2021-07-10] MEDS: Nystatin POWDER 30 GM BOTTLE TP SCH ×3 (09:54→20:12)
[2021-07-10] MEDS: Furosemide 40 MG TABLET PO SCH ×2 (09:55→18:05)
[2021-07-11] MEDS: Ipratropium/Albuterol Neb 3 ML IH SCH ×5 (04:07→15:31)
[2021-07-11] MEDS: Furosemide 40 MG TABLET PO SCH ×2 (08:43→16:20)
[2021-07-11] MEDS: Gabapentin 300 MG CAPSULE PO SCH (08:44)
[2021-07-11] MEDS: Aspirin Enteric Coated 81 MG Tablet PO SCH (08:44)
[2021-07-11] MEDS: Nystatin POWDER 30 GM BOTTLE TP SCH ×2 (08:44→15:12)
[2021-07-11] MEDS: Nystatin Cream 15 GM TUBE TP SCH (08:44)
[2021-07-11] MEDS: Insulin LISPRO 300 UNITS/3 ML VIAL SUBQ SCH ×3 (09:03→16:32)
[2021-07-11 11:17] LABS: Adenovirus Not Detected (Not Detect); Bordetella Pertussis Not Detected (Not Detect); Coronavirus 229E DETECTED (Not Detect); Coronavirus HKU1 Not Detected (Not Detect); Coronavirus NL63 Not Detected (Not Detect); Coronavirus OC43 Not Detected (Not Detect); Human Metapneumovirus Not Detected (Not Detect); Human Rhinovirus/Enterovirus Not Detected (Not Detect); Influenza A Subtype 2009 H1 Not Detected (Not Detect); Influenza B Not Detected (Not Detect); Parainfluenza Virus 1 Not Detected (Not Detect); Parainfluenza Virus 2 Not Detected (Not Detect); Parainfluenza Virus 3 Not Detected (Not Detect); Parainfluenza Virus 4 Not Detected (Not Detect); Respiratory Syncytial Virus Not Detected (Not Detect); SARS-CoV-2 Not Detected (Not Detect)
[2021-07-11 11:18] LABS: Chlamydophila pneumoniae Not Detected (Not Detect); Mycoplasma pneumoniae Not Detected (Not Detect)
[2021-07-11 11:29] VITALS: BP 138/56; PULSE 90; TEMP 97.9; O2SAT 96
== END 2021-07-11 17:47 | DRG 194 ==
LOC: 3NENU → SUATTDRO 23:49 → ICNU 06-16 11:34 → 2NNU 06-22 17:45 → 2NENU 06-29 01:11
PROVIDERS: ADMIT Internal Medicine; ATTEND Hospitalist